=== PATIENT | male | born 1950 | race Caucasian/White ===

== ENCOUNTER 2018-11-15 21:33 | Observation (INO) | payer MEDICARE, BC ==
[2018-11-15] MEDS ORDERED: Sodium Chloride 0.9% 10 ML Syringe FLUSH PRN (21:45)
--- NOTE | 2018-11-15 21:58 | EDM.PDOC ---
ED HPI GENERAL MEDICAL PROBLEM - General Chief Complaint: General Stated Complaint: GENERAL MALAISE Time Seen by Provider: 11/15/18 21:45 Source of Information: Reports: Patient, Family History Limitations: Reports: No Limitations - History of Present Illness INITIAL COMMENTS - FREE TEXT/NARRATIVE: This is a 68yo M here for lower abdominal pain and discomfort. Patient states he has had recent chemotherapy and has been having loose stools the past few days. He feels weak and has malaise. He does note some shortness of breath. Denies chest pain. - Related Data Allergies Allergy/AdvReac Type Severity Reaction Status Date / Time No Known Allergies Allergy Verified 11/15/18 21:48 Home Meds: Home Meds Aspirin [Adult Low Dose Aspirin EC] 81 mg PO BID 01/25/13 [History] Furosemide [Lasix] 20 mg PO DAILY 01/25/13 [History] Losartan Potassium [Cozaar] 50 mg PO DAILY 01/25/13 [History] Metoprolol Tartrate 50 mg PO BID 01/25/13 [History] Simvastatin [Zocor] 40 mg PO BEDTIME 01/25/13 [History] ED ROS GENERAL - Review of Systems Review Of Systems: ROS reveals no pertinent complaints other than HPI. ED EXAM, GENERAL - Physical Exam Exam: See Below Exam Limited By: No Limitations General Appearance: Alert, WD/WN, Moderate Distress Eye Exam: Bilateral Eye: EOMI, PERRL Ears: Normal External Exam Nose: Normal Inspection Throat/Mouth: Normal Inspection Head: Atraumatic, Normocephalic Neck: Normal Inspection, Supple, Non-Tender Respiratory/Chest: No Respiratory Distress, Lungs Clear, Normal Breath Sounds Cardiovascular: Normal Peripheral Pulses, Regular Rate, Rhythm Peripheral Pulses: 2+: Dorsalis Pedis (L), Dorsalis Pedis (R) GI/Abdominal: Soft, Tender, Abnormal Bowel Sounds (hyperactive) Back Exam: Normal Inspection, Full Range of Motion Extremities: Normal Inspection, Normal Range of Motion Neurological: Alert, Oriented, CN II-XII Intact Psychiatric: Normal Affect, Normal Mood Skin Exam: Dry, Intact, Pallor Course - Orders/Labs/Meds Orders: Active Orders 24 hr Category Date Time Status Patient Status [ADT] Routine ADT 11/15/18 22:53 Active Oxygen Therapy [RC] PRN Care 11/15/18 22:53 Active Up With Assistance [RC] ASDIRECTED Care 11/15/18 22:53 Active Vital Signs [RC] Q4H Care 11/15/18 22:53 Active Chest Abdomen Pelvis wo Cont [CT] Stat Exams 11/15/18 22:01 Taken CBC WITH AUTO DIFF [HEME] AM Lab 11/16/18 05:11 Ordered COMPREHENSIVE METABOLIC PN,CMP [CHEM] AM Lab 11/16/18 05:11 Ordered HYDROmorphone [Dilaudid] Med 11/15/18 23:29 Ordered 1 mg IVPUSH Q6H PRN Ketorolac [Toradol] Med 11/15/18 23:29 Ordered 30 mg IVPUSH Q6H PRN Ondansetron [Zofran] Med 11/15/18 22:55 Active 4 mg IVPUSH Q4H PRN Sodium Chloride 0.9% [Normal Saline] 1,000 ml Med 11/15/18 23:00 Active IV ASDIRECTED Sodium Chloride 0.9% [Saline Flush] Med 11/15/18 21:45 Active 10 ml FLUSH ASDIRECTED PRN Peripheral IV Insertion Adult [OM.PC] Routine Oth 11/15/18 21:45 Ordered Code Status [Resuscitation Status] Stat Resus Stat 11/15/18 23:31 Ordered Medication Orders Hydromorphone HCl (Dilaudid) 1 mg IVPUSH Q6H PRN PRN Reason: Pain (severe 7-10) Sodium Chloride (Normal Saline) 1,000 mls @ 125 mls/hr IV ASDIRECTED [facility] Ketorolac Tromethamine (Toradol) 30 mg IVPUSH Q6H PRN PRN Reason: Abdominal Pain Stop: 11/20/18 23:29 Ondansetron HCl (Zofran) 4 mg IVPUSH Q4H PRN PRN Reason: Nausea/Vomiting Sodium Chloride (Saline Flush) 10 ml FLUSH ASDIRECTED PRN PRN Reason: Keep Vein Open Labs: Laboratory Tests 11/15/18 11/15/18 11/15/18 Range/Units 10:15 10:15 10:15 WBC 1.9 L D (4.0-11.0) K/uL RBC 5.33 (4.50-6.50) M/uL Hgb 16.1 (13.0-18.0) g/dL Hct 46.6 (40.0-54.0) % MCV 87 (76-96) fL MCH 30.2 (27.0-32.0) pg MCHC 34.5 (31.0-35.0) g/dL RDW 13.2 (11.0-16.0) % Plt Count 106 L D (150-400) K/uL MPV 9.6 (6.0-10.0) fL Neut % (Auto) 82.6 H (45.0-70.0) % Lymph % (Auto) 12.2 L (20.0-40.0) % [place] % (Auto) 2.6 L (3.0-10.0) % Eos % (Auto) 2.1 (1.0-5.0) % Baso % (Auto) 0.5 (0.0-0.5) % Neut # (Auto) 1.56 L (2.00-7.50) K/uL Lymph # (Auto) 0.23 L (1.50-4.00) K/uL [place] # (Auto) 0.05 L (0.20-0.80) K/uL Eos # (Auto) 0.04 (0.04-0.40) K/uL Baso # (Auto) 0.01 L (0.02-0.10) K/uL D-Dimer, Quantitative (0-400) ng/mL Sodium 136 (136-145) mmol/L Potassium 3.8 (3.5-5.1) mmol/L Chloride 100 (98-107) mmol/L Carbon Dioxide 20.6 L D (21.0-32.0) mmol/L Anion Gap 19.2 H (5.0-15.0) mmol/L BUN 12 D (8-26) mg/dL Creatinine 1.37 H D (0.70-1.30) mg/dL Est Cr Clr Drug Dosing TNP Estimated GFR (MDRD) 51 L (>60) MLS/MIN BUN/Creatinine Ratio 8.8 (6-25) Glucose 174 H (74-100) mg/dL Calcium 8.8 (8.5-10.1) mg/dL Total Bilirubin 3.3 H D (0.0-1.0) mg/dL AST 449 H (15-37) U/L ALT 468 H (12-78) U/L Alkaline Phosphatase 648 H (46-116) U/L Total Protein 6.3 L (6.4-8.2) g/dL Albumin 2.4 L (3.4-5.0) g/dL Globulin 3.9 (2.2-4.2) g/dL Albumin/Globulin Ratio 0.6 L (0.8-2.0) Lipase 30 L D (73-393) U/L Urine Color Yellow Urine Appearance Clear (CLEAR) Urine pH 5.5 (5.0-8.0) Ur Specific [place] 1.010 (1.003-1.030) Urine Protein Trace H (NEGATIVE) mg/dL Urine Glucose (UA) Negative (NEGATIVE) mg/dL Urine Ketones Negative (NEGATIVE) mg/dL Urine Occult Blood Negative (NEGATIVE) Urine Nitrite Negative (NEGATIVE) Urine Bilirubin Small H (NEGATIVE) Urine Urobilinogen 0.2 (0.2-1.0) E.U./dL Ur Leukocyte Esterase Negative (NEGATIVE) Urine RBC Not seen /HPF Urine WBC Not seen /HPF Ur Squamous Epith Cells Moderate /HPF Urine Bacteria Not seen /HPF 11/15/18 Range/Units 10:15 WBC (4.0-11.0) K/uL RBC (4.50-6.50) M/uL Hgb (13.0-18.0) g/dL Hct (40.0-54.0) % MCV (76-96) fL MCH (27.0-32.0) pg MCHC (31.0-35.0) g/dL RDW (11.0-16.0) % Plt Count (150-400) K/uL MPV (6.0-10.0) fL Neut % (Auto) (45.0-70.0) % Lymph % (Auto) (20.0-40.0) % [place] % (Auto) (3.0-10.0) % Eos % (Auto) (1.0-5.0) % Baso % (Auto) (0.0-0.5) % Neut # (Auto) (2.00-7.50) K/uL Lymph # (Auto) (1.50-4.00) K/uL [place] # (Auto) (0.20-0.80) K/uL Eos # (Auto) (0.04-0.40) K/uL Baso # (Auto) (0.02-0.10) K/uL D-Dimer, Quantitative 1800 H (0-400) ng/mL Sodium (136-145) mmol/L Potassium (3.5-5.1) mmol/L Chloride (98-107) mmol/L Carbon Dioxide (21.0-32.0) mmol/L Anion Gap (5.0-15.0) mmol/L BUN (8-26) mg/dL Creatinine (0.70-1.30) mg/dL Est Cr Clr Drug Dosing Estimated GFR (MDRD) (>60) MLS/MIN BUN/Creatinine Ratio (6-25) Glucose (74-100) mg/dL Calcium (8.5-10.1) mg/dL Total Bilirubin (0.0-1.0) mg/dL AST (15-37) U/L ALT (12-78) U/L Alkaline Phosphatase (46-116) U/L Total Protein (6.4-8.2) g/dL Albumin (3.4-5.0) g/dL Globulin (2.2-4.2) g/dL Albumin/Globulin Ratio (0.8-2.0) Lipase (73-393) U/L Urine Color Urine Appearance (CLEAR) Urine pH (5.0-8.0) Ur Specific [place] (1.003-1.030) Urine Protein (NEGATIVE) mg/dL Urine Glucose (UA) (NEGATIVE) mg/dL Urine Ketones (NEGATIVE) mg/dL Urine Occult Blood (NEGATIVE) Urine Nitrite (NEGATIVE) Urine Bilirubin (NEGATIVE) Urine Urobilinogen (0.2-1.0) E.U./dL Ur Leukocyte Esterase (NEGATIVE) Urine RBC /HPF Urine WBC /HPF Ur Squamous Epith Cells /HPF Urine Bacteria /HPF Meds: Medications Generic Name Dose Route Start Last Admin Trade Name Freq PRN Reason Stop Dose Admin Hydromorphone HCl 1 mg 11/15/18 23:29 Dilaudid IVPUSH Q6H PRN Pain (severe 7-10) Sodium Chloride 1,000 mls @ 125 mls/hr 11/15/18 23:00 Normal Saline IV ASDIRECTED [facility] Ketorolac Tromethamine 30 mg 11/15/18 23:29 Toradol IVPUSH 11/20/18 23:29 Q6H PRN Abdominal Pain Ondansetron HCl 4 mg 11/15/18 22:55 Zofran IVPUSH Q4H PRN Nausea/Vomiting Sodium Chloride 10 ml 11/15/18 21:45 Saline Flush FLUSH ASDIRECTED PRN Keep Vein Open Departure - Departure Time of Disposition: 23:30 Disposition: Refer to Observation Condition: Fair Clinical Impression: Chemotherapy induced neutropenia, Pancreatic carcinoma, Renal dysfunction, Abnormal liver enzymes Intractable nausea and vomiting Qualifiers: Vomiting type: unspecified Qualified Code(s): R11.2 - Nausea with vomiting, unspecified Abdominal pain Qualifiers: Abdominal location: lower abdomen, unspecified Qualified Code(s): R10.30 - Lower abdominal pain, unspecified - Discharge Information Forms: ED Department Discharge - Problem List & Annotations (1) Abdominal pain SNOMED Code(s): 99329069 Code(s): R10.9 - UNSPECIFIED ABDOMINAL PAIN Status: Acute Priority: High Current Visit: Yes Qualifiers: Abdominal location: lower abdomen, unspecified Qualified Code(s): R10.30 - Lower abdominal pain, unspecified (2) Abnormal liver enzymes SNOMED Code(s): 548322538 Code(s): R74.8 - ABNORMAL LEVELS OF OTHER SERUM ENZYMES Status: Acute Priority: High Current Visit: Yes (3) Chemotherapy induced neutropenia SNOMED Code(s): 204780401 Code(s): D70.1 - AGRANULOCYTOSIS SECONDARY TO CANCER CHEMOTHERAPY; T45.1X5A - ADVERSE EFFECT OF ANTINEOPLASTIC AND IMMUNOSUP DRUGS, INIT Status: Acute Priority: High Current Visit: Yes (4) Intractable nausea and vomiting SNOMED Code(s): 555818843 Code(s): R11.2 - NAUSEA WITH VOMITING, UNSPECIFIED Status: Acute Priority : High Current Visit: Yes Qualifiers: Vomiting type: unspecified Qualified Code(s): R11.2 - Nausea with vomiting , unspecified (5) Pancreatic carcinoma SNOMED Code(s): 685945989 Code(s): C25.9 - MALIGNANT NEOPLASM OF PANCREAS, UNSPECIFIED Status: Chronic Priority: High Current Visit: Yes (6) Renal dysfunction Status: Acute Priority: High Current Visit: Yes - Problem List Review Problem List Initiated/Reviewed/Updated: Yes - My Orders Last 24 Hours: My Active Orders 11/15/18 21:45 Sodium Chloride 0.9% [Saline Flush] 10 ml FLUSH ASDIRECTED PRN Peripheral IV Insertion Adult [OM.PC] Routine 11/15/18 22:01 Chest Abdomen Pelvis wo Cont [CT] Stat 11/15/18 22:53 Patient Status [ADT] Routine Oxygen Therapy [RC] PRN Up With Assistance [RC] ASDIRECTED Vital Signs [RC] Q4H 11/15/18 22:55 Ondansetron [Zofran] 4 mg IVPUSH Q4H PRN 11/15/18 23:00 Sodium Chloride 0.9% [Normal Saline] 1,000 ml IV ASDIRECTED 11/15/18 23:29 HYDROmorphone [Dilaudid] 1 mg IVPUSH Q6H PRN Ketorolac [Toradol] 30 mg IVPUSH Q6H PRN 11/15/18 23:31 Code Status [Resuscitation Status] Stat 11/16/18 05:11 CBC WITH AUTO DIFF [HEME] AM COMPREHENSIVE METABOLIC PN,CMP [CHEM] AM - Assessment/Plan Last 24 Hours: My Active Orders 11/15/18 21:45 Sodium Chloride 0.9% [Saline Flush] 10 ml FLUSH ASDIRECTED PRN Peripheral IV Insertion Adult [OM.PC] Routine 11/15/18 22:01 Chest Abdomen Pelvis wo Cont [CT] Stat 11/15/18 22:53 Patient Status [ADT] Routine Oxygen Therapy [RC] PRN Up With Assistance [RC] ASDIRECTED Vital Signs [RC] Q4H 11/15/18 22:55 Ondansetron [Zofran] 4 mg IVPUSH Q4H PRN 11/15/18 23:00 Sodium Chloride 0.9% [Normal Saline] 1,000 ml IV ASDIRECTED 11/15/18 23:29 HYDROmorphone [Dilaudid] 1 mg IVPUSH Q6H PRN Ketorolac [Toradol] 30 mg IVPUSH Q6H PRN 11/15/18 23:31 Code Status [Resuscitation Status] Stat 11/16/18 05:11 CBC WITH AUTO DIFF [HEME] AM COMPREHENSIVE METABOLIC PN,CMP [CHEM] AM Plan: Counseled on renal dysfunction, neutropenia, nausea and vomiting, and labs today. Discussed f/u labs in am. Patient to be placed in observation. Zofran as indicated. Toradol for abdominal pain and if symptoms persist or worsen dilaudid has been ordered as PRN. IVF hydration as directed.
[2018-11-15] MEDS ORDERED: Ondansetron 4 MG/2 ML SDV IVPUSH PRN (22:55)
[2018-11-15] MEDS ORDERED: HYDROmorphone 2 MG/ML Syringe IVPUSH PRN (23:29)
[2018-11-15] MEDS ORDERED: Ketorolac 30 MG/ML SDV IVPUSH PRN (23:29)
[2018-11-16] MEDS ORDERED: HYDROmorphone 2 MG/ML SDV ONE (00:03)
[2018-11-16] MEDS: Sodium Chloride 0.9% 1,000 ML IV SCH ×2 (00:09→09:08)
[2018-11-16] MEDS ORDERED: Nitroglycerin 0.4 MG Tab.SL SL PRN (02:58)
[2018-11-16] MEDS ORDERED: Albuterol 8 GM Inhaler INH PRN ×2 (02:58→09:00)
[2018-11-16] MEDS ORDERED: Ibuprofen 200 MG Tab PO PRN (02:58)
[2018-11-16] MEDS ORDERED: Prochlorperazine 10 MG Tab PO PRN (02:58)
[2018-11-16] MEDS ORDERED: Colchicine 0.6 MG Tab PO PRN (02:58)
[2018-11-16] MEDS ORDERED: Indomethacin 50 MG Cap PO PRN (02:58)
[2018-11-16] MEDS ORDERED: Furosemide 20 MG Tab PO SCH (08:00)
[2018-11-16] MEDS ORDERED: [UNRECOGNIZED DRUG - REMARK] PO SCH (08:00)
[2018-11-16] MEDS ORDERED: Losartan 50 MG Tab PO SCH (08:00)
[2018-11-16] MEDS ORDERED: Metoprolol Tartrate 50 MG Tab PO SCH (08:00)
[2018-11-16] MEDS ORDERED: Aspirin 81 MG Tab.EC PO SCH (08:00)
[2018-11-16] MEDS ORDERED: Mometasone Furoate Powder 220 MCG/Puff 14 Dose Inhaler INH SCH (08:00)
[2018-11-16] MEDS ORDERED: Cholecalciferol (Vitamin D3) 25 MCG Tab PO SCH (08:00)
[2018-11-16] MEDS ORDERED: Atropine/Diphenoxylate 0.025-2.5 MG/5 ML Soln 60 ML Bottle PO PRN (08:00)
[2018-11-16] MEDS ORDERED: HYDROmorphone 2 MG/ML SDV IV PRN (08:28)
[2018-11-16] MEDS ORDERED: HYDROmorphone 2 MG/ML SDV IVPUSH PRN (08:29)
--- NOTE | 2018-11-16 09:27 | PCM.DCSUM1 ---
Discharge Summary - Discharge Data Discharge Date: 11/16/18 Discharge Disposition: Home, Self-Care 01 Condition: Fair - Referral to Home Health Primary Care Physician: Donald Elder MD - Discharge Diagnosis/Problem(s) (1) Abdominal pain SNOMED Code(s): 43719741 ICD Code: R10.9 - UNSPECIFIED ABDOMINAL PAIN Status: Resolved Priority: High Current Visit: Yes Qualifiers: Abdominal location: lower abdomen, unspecified Qualified Code(s): R10.30 - Lower abdominal pain, unspecified (2) Abnormal liver enzymes SNOMED Code(s): 393597610 ICD Code: R74.8 - ABNORMAL LEVELS OF OTHER SERUM ENZYMES Status: Acute Priority: High Current Visit: Yes (3) Chemotherapy induced neutropenia SNOMED Code(s): 746644675 ICD Code: D70.1 - AGRANULOCYTOSIS SECONDARY TO CANCER CHEMOTHERAPY; T45.1X5A - ADVERSE EFFECT OF ANTINEOPLASTIC AND IMMUNOSUP DRUGS, INIT Status: Resolved Priority: High Current Visit: Yes (4) Intractable nausea and vomiting SNOMED Code(s): 097206219 ICD Code: R11.2 - NAUSEA WITH VOMITING, UNSPECIFIED Status: Resolved Priority: High Current Visit: Yes Qualifiers: Vomiting type: unspecified Qualified Code(s): R11.2 - Nausea with vomiting , unspecified (5) Pancreatic carcinoma SNOMED Code(s): 677864117 ICD Code: C25.9 - MALIGNANT NEOPLASM OF PANCREAS, UNSPECIFIED Status: Chronic Priority: High Current Visit: Yes (6) Renal dysfunction Status: Suspected Priority: High Current Visit: Yes - Patient Instructions Diet: Full Liquid Diet Activity: As Tolerated - Discharge Plan Home Medications: Home Meds Aspirin [Adult Low Dose Aspirin EC] 81 mg PO BID 01/25/13 [History] Furosemide [Lasix] 20 mg PO DAILY 01/25/13 [History] Losartan Potassium [Cozaar] 50 mg PO DAILY 01/25/13 [History] Metoprolol Tartrate 50 mg PO BID 01/25/13 [History] Simvastatin [Zocor] 40 mg PO BEDTIME 01/25/13 [History] Albuterol [Ventolin HFA] 2 puff IH Q4HR PRN 11/16/18 [History] Cetirizine HCl [All Day Allergy] 10 mg PO DAILY 11/16/18 [History] Cholecalciferol (Vitamin D3) [Vitamin D3] 25 mcg PO DAILY 11/16/18 [History] Colchicine [Colcrys] 0.6 mg PO ASDIRECTED PRN 11/16/18 [History] Diphenoxylate HCl/Atropine [Diphenoxylate-Atrop 2.5-0.025] 1 each PO QID PRN [History] Ibuprofen [Advil] 400 mg PO Q6H PRN 11/16/18 [History] Indomethacin 50 mg PO TID PRN 11/16/18 [History] Mometasone Furoate [Asmanex] 2 puff IH DAILY 11/16/18 [History] Nitroglycerin [Nitrostat] 0.4 mg SL ASDIRECTED PRN 11/16/18 [History] Prochlorperazine [Compazine] 10 mg PO Q6H PRN 11/16/18 [History] Forms: ED Department Discharge Referrals: Donald Elder MD [Primary Care Provider] - - Discharge Summary/Plan Comment DC Time >30 min.: No Discharge Summary/Plan Comment: Counseled on liquid diet due to likely obstruction. Discussed hydration and fluid resuscitation. Counseled on close monitoring and f/u in clinic as scheduled. Patient to f/u with Oncology on Monday. Symptoms of nausea and abd pain resolved. - General Info Date of Service: 11/16/18 Functional Status: Reports: Tolerating Diet, Ambulating, Urinating - Review of Systems General: Reports: Weakness HEENT: Reports: No Symptoms Pulmonary: Reports: No Symptoms Cardiovascular: Reports: No Symptoms Gastrointestinal: Reports: Decreased Appetite Genitourinary: Reports: No Symptoms Musculoskeletal: Reports: No Symptoms Skin: Reports: No Symptoms Neurological: Reports: No Symptoms Psychiatric: Reports: No Symptoms - Patient Data Vitals - Most Recent: Last Vital Signs Temp 36.9 C 11/16/18 03:30 Pulse 117 H 11/16/18 09:17 Resp 18 11/16/18 03:30 BP 101/67 11/16/18 09:17 Pulse Ox 97 11/16/18 03:30 Weight - Most Recent: 100.335 kg I&O - Last 24 hours: Intake & Output 11/15/18 11/16/18 11/16/18 22:59 06:59 14:59 Intake Total 1244 Output Total 0 Balance 1244 Lab Results - Last 24 hrs: Laboratory Results - last 24 hr 11/15/18 11/15/18 11/15/18 Range/Units 10:15 10:15 10:15 WBC 1.9 L D (4.0-11.0) K/uL RBC 5.33 (4.50-6.50) M/uL Hgb 16.1 (13.0-18.0) g/dL Hct 46.6 (40.0-54.0) % MCV 87 (76-96) fL MCH 30.2 (27.0-32.0) pg MCHC 34.5 (31.0-35.0) g/dL RDW 13.2 (11.0-16.0) % Plt Count 106 L D (150-400) K/uL MPV 9.6 (6.0-10.0) fL Neut % (Auto) 82.6 H (45.0-70.0) % Lymph % (Auto) 12.2 L (20.0-40.0) % [place] % (Auto) 2.6 L (3.0-10.0) % Eos % (Auto) 2.1 (1.0-5.0) % Baso % (Auto) 0.5 (0.0-0.5) % Neut # (Auto) 1.56 L (2.00-7.50) K/uL Lymph # (Auto) 0.23 L (1.50-4.00) K/uL [place] # (Auto) 0.05 L (0.20-0.80) K/uL Eos # (Auto) 0.04 (0.04-0.40) K/uL Baso # (Auto) 0.01 L (0.02-0.10) K/uL D-Dimer, Quantitative (0-400) ng/mL Sodium 136 (136-145) mmol/L Potassium 3.8 (3.5-5.1) mmol/L Chloride 100 (98-107) mmol/L Carbon Dioxide 20.6 L D (21.0-32.0) mmol/L Anion Gap 19.2 H (5.0-15.0) mmol/L BUN 12 D (8-26) mg/dL Creatinine 1.37 H D (0.70-1.30) mg/dL Est Cr Clr Drug Dosing TNP Estimated GFR (MDRD) 51 L (>60) MLS/MIN BUN/Creatinine Ratio 8.8 (6-25) Glucose 174 H (74-100) mg/dL Calcium 8.8 (8.5-10.1) mg/dL Total Bilirubin 3.3 H D (0.0-1.0) mg/dL AST 449 H (15-37) U/L ALT 468 H (12-78) U/L Alkaline Phosphatase 648 H (46-116) U/L Total Protein 6.3 L (6.4-8.2) g/dL Albumin 2.4 L (3.4-5.0) g/dL Globulin 3.9 (2.2-4.2) g/dL Albumin/Globulin Ratio 0.6 L (0.8-2.0) Lipase 30 L D (73-393) U/L Urine Color Yellow Urine Appearance Clear (CLEAR) Urine pH 5.5 (5.0-8.0) Ur Specific [place] 1.010 (1.003-1.030) Urine Protein Trace H (NEGATIVE) mg/dL Urine Glucose (UA) Negative (NEGATIVE) mg/dL Urine Ketones Negative (NEGATIVE) mg/dL Urine Occult Blood Negative (NEGATIVE) Urine Nitrite Negative (NEGATIVE) Urine Bilirubin Small H (NEGATIVE) Urine Urobilinogen 0.2 (0.2-1.0) E.U./dL Ur Leukocyte Esterase Negative (NEGATIVE) Urine RBC Not seen /HPF Urine WBC Not seen /HPF Ur Squamous Epith Cells Moderate /HPF Urine Bacteria Not seen /HPF 11/15/18 11/16/18 11/16/18 Range/Units 10:15 07:20 07:20 WBC 6.5 D (4.0-11.0) K/uL RBC 4.96 (4.50-6.50) M/uL Hgb 14.9 (13.0-18.0) g/dL Hct 43.6 (40.0-54.0) % MCV 88 (76-96) fL MCH 30.0 (27.0-32.0) pg MCHC 34.2 (31.0-35.0) g/dL RDW 13.3 (11.0-16.0) % Plt Count 80 L D (150-400) K/uL MPV 10.3 H (6.0-10.0) fL Neut % (Auto) 85.6 H (45.0-70.0) % Lymph % (Auto) 5.8 L (20.0-40.0) % [place] % (Auto) 8.0 (3.0-10.0) % Eos % (Auto) 0.3 L (1.0-5.0) % Baso % (Auto) 0.3 (0.0-0.5) % Neut # (Auto) 5.59 (2.00-7.50) K/uL Lymph # (Auto) 0.38 L (1.50-4.00) K/uL [place] # (Auto) 0.52 (0.20-0.80) K/uL Eos # (Auto) 0.02 L (0.04-0.40) K/uL Baso # (Auto) 0.02 (0.02-0.10) K/uL D-Dimer, Quantitative 1800 H (0-400) ng/mL Sodium 137 (136-145) mmol/L Potassium 3.4 L (3.5-5.1) mmol/L Chloride 101 (98-107) mmol/L Carbon Dioxide 20.9 L (21.0-32.0) mmol/L Anion Gap 18.5 H (5.0-15.0) mmol/L BUN 15 D (8-26) mg/dL Creatinine 2.32 H D (0.70-1.30) mg/dL Est Cr Clr Drug Dosing 27.70 Estimated GFR (MDRD) 28 L (>60) MLS/MIN BUN/Creatinine Ratio 6.5 (6-25) Glucose 114 H D (74-100) mg/dL Calcium 8.3 L (8.5-10.1) mg/dL Total Bilirubin 4.2 H (0.0-1.0) mg/dL AST 345 H (15-37) U/L ALT 441 H (12-78) U/L Alkaline Phosphatase 678 H (46-116) U/L Total Protein 4.8 L (6.4-8.2) g/dL Albumin 2.2 L (3.4-5.0) g/dL Globulin 2.6 (2.2-4.2) g/dL Albumin/Globulin Ratio 0.9 (0.8-2.0) Lipase (73-393) U/L Urine Color Urine Appearance (CLEAR) Urine pH (5.0-8.0) Ur Specific [place] (1.003-1.030) Urine Protein (NEGATIVE) mg/dL Urine Glucose (UA) (NEGATIVE) mg/dL Urine Ketones (NEGATIVE) mg/dL Urine Occult Blood (NEGATIVE) Urine Nitrite (NEGATIVE) Urine Bilirubin (NEGATIVE) Urine Urobilinogen (0.2-1.0) E.U./dL Ur Leukocyte Esterase (NEGATIVE) Urine RBC /HPF Urine WBC /HPF Ur Squamous Epith Cells /HPF Urine Bacteria /HPF Med Orders - Current: Current Medications Albuterol (Ventolin Hfa) 0 gm INH Q4H PRN PRN Reason: Shortness of Breath Aspirin (Halfprin) 81 mg PO BID [facility] Last Admin: 11/16/18 09:16 Dose: 81 mg Cholecalciferol (Vitamin D3) 25 mcg PO DAILY [facility] Last Admin: 11/16/18 09:18 Dose: 25 mcg Colchicine (Colcrys) 0.6 mg PO ASDIRECTED PRN PRN Reason: Inflammation Diphenoxylate HCl/Atropine (Lomotil) 5 ml PO QID PRN PRN Reason: Diarrhea Furosemide (Lasix) 20 mg PO DAILY [facility] Last Admin: 11/16/18 09:17 Dose: Not Given Hydromorphone HCl (Dilaudid) 1 mg IVPUSH Q6H PRN PRN Reason: SEVERA PAIN Sodium Chloride (Normal Saline) 1,000 mls @ 125 mls/hr IV ASDIRECTED [facility] Last Admin: 11/16/18 09:08 Dose: 125 mls/hr Ibuprofen (Motrin) 400 mg PO Q6H PRN PRN Reason: Pain Indomethacin (Indocin) 50 mg PO TID PRN PRN Reason: Inflammation Ketorolac Tromethamine (Toradol) 30 mg IVPUSH Q6H PRN PRN Reason: Abdominal Pain Stop: 11/20/18 23:29 Last Admin: 11/15/18 22:33 Dose: 30 mg Losartan Potassium (Cozaar) 50 mg PO DAILY [facility] Last Admin: 11/16/18 09:11 Dose: 50 mg Metoprolol Tartrate (Lopressor) 50 mg PO BID [facility] Last Admin: 11/16/18 09:17 Dose: 50 mg Mometasone Furoate (Asmanex 220 Mcg) 2 puff INH DAILY [facility] Last Admin: 11/16/18 09:09 Dose: 2 inh Nitroglycerin (Nitrostat) 0.4 mg SL ASDIRECTED PRN PRN Reason: Chest Pain Non-Formulary Medication (Cetirizine Hcl [All Day Allergy]) 10 mg PO DAILY [facility] Last Admin: 11/16/18 09:10 Dose: 10 mg Ondansetron HCl (Zofran) 4 mg IVPUSH Q4H PRN PRN Reason: Nausea/Vomiting Last Admin: 11/15/18 22:30 Dose: 4 mg Prochlorperazine Maleate (Compazine) 10 mg PO Q6H PRN PRN Reason: Nausea Simvastatin (Zocor) 40 mg PO BEDTIME [facility] Sodium Chloride (Saline Flush) 10 ml FLUSH ASDIRECTED PRN PRN Reason: Keep Vein Open Discontinued Medications Albuterol (Ventolin Hfa) 0 gm INH Q4HR PRN PRN Reason: Shortness of Breath Hydromorphone HCl (Dilaudid) 1 mg IVPUSH Q6H PRN PRN Reason: Pain (severe 7-10) Last Admin: 11/16/18 00:12 Dose: 0.5 mg Hydromorphone HCl (Dilaudid) Confirm Administered Dose 2 mg .ROUTE .STK-MED ONE Stop: 11/16/18 00:04 Last Admin: 11/16/18 00:17 Dose: Not Given Hydromorphone HCl (Dilaudid) 2 mg IV Q6H PRN PRN Reason: SEVERA PAIN - Exam General: Reports: Alert, Oriented, Cooperative HEENT: Reports: Pupils Equal, Pupils Reactive, EOMI Neck: Reports: Supple Lungs: Reports: Clear to Auscultation, Normal Respiratory Effort Cardiovascular: Reports: Regular Rate, Regular Rhythm GI/Abdominal Exam: Normal Bowel Sounds, Soft, Non-Tender Back Exam: Reports: Normal Inspection Extremities: Normal Inspection Skin: Reports: Warm, Dry, Intact
--- NOTE | 2018-11-16 17:08 | CT ---
CLINICAL DATA: Shortness of breath, abdominal pain, hx Panc ca. UNENHANCED CHEST CT, 2018: Multislice acquisition through the chest without IV contrast was performed. No priors. There are mild atelectatic changes in the dependent portions of both lungs. The lungs are otherwise clear. No pneumothorax. No pleural effusions. The heart size is normal. There are mild coronary artery calcifications. No significant pericardial effusion. No hilar or mediastinal adenopathy. The patient is status post median sternotomy. No aortic aneurysm. IMPRESSION: No acute abnormalities. UNENHANCED ABDOMEN AND PELVIC CT: Multislice acquisition through the abdomen and pelvis without IV or oral contrast was performed. No priors. There are minimal atelectatic changes of the dependent portions of both lower lungs. The lung bases are otherwise clear. The liver is normal size. There is pneumobilia. There is a common bile duct stent in place. There is contrast present within the gallbladder and within the cystic duct. There is minimal pericholecystic fat stranding. There is also a stent noted within the pancreatic duct. There is a 4.6 cm mass within the pancreatic head. The body and tail of the pancreas are unremarkable. No pancreatic duct dilatation. Spleen appears normal. The right and left adrenals appear normal. There is mild atrophy of both kidneys. There is a 2.2 cm near-fluid density lesion projecting from the interpolar region of the left kidney posteriorly, consistent with a renal cyst. No hydronephrosis or hydroureter. No nephrocalcinosis or nephrolithiasis. There is a small amount of fluid within the bladder. It appears normal. The appendix is not dilated. No evidence of appendicitis. No free air. No free fluid. No dilated loops of bowel. No adenopathy. No aortic aneurysm. There is a small paraumbilical ventral hernia containing fat. There is a left inguinal hernia containing fat. No other significant findings. Job: [id number] MTDD
[2018-11-16] MEDS ORDERED: Simvastatin 40 MG Tab PO SCH (20:00)
== END 2018-11-16 18:08 | disposition home or self-care (01) ==
LOC: LB.ED 21:33 → LB.MS 23:54
PROVIDERS: ADMIT Family Medicine; ATTEND Family Medicine
DX: R10.30 Lower abdominal pain, unspecified (principal); R74.8 Abnormal levels of other serum enzymes; D70.1 Agranulocytosis secondary to cancer chemotherapy; R11.2 Nausea with vomiting, unspecified; C25.9 Malignant neoplasm of pancreas, unspecified; N28.9 Disorder of kidney and ureter, unspecified; Z79.82 Long term (current) use of aspirin; Z79.899 Other long term (current) drug therapy
CPT/HCPCS: 36415; 71250; 74176; 80053; 81001; 83690; 85025; 85379; 99285; A9270; J1170; J1642; J1885; J2405; J7030

== ENCOUNTER 2018-12-05 06:11 | Observation (INO) | payer MEDICARE, BC ==
[2018-12-05] MEDS ORDERED: Sodium Chloride 0.9% 1,000 ML IV ONE ×2 (06:43→10:42)
--- NOTE | 2018-12-05 08:49 | CR ---
Date of Service: 12/05/18 Clinical Data: cough - weakness. AP PORTABLE CHEST: Comparison is made to a prior exam dated 01/28/13. The patient is status post median sternotomy. The heart size is normal. There is a right subclavian Port-a-Cath in place with its distal tip in the region of the right atrium. There are minimal atelectatic changes in the left lung base. The lungs are otherwise clear. No pneumothorax. No pleural effusions. [id number] [facility]
[2018-12-05] MEDS ORDERED: MVI, Adult with Vitamin K 10 ML, Thiamine 200 MG in Dextrose 5%-Lactated Ringers 1,000 ML IV SCH ×3 (09:15)
[2018-12-05] MEDS ORDERED: Furosemide 40 MG/4 ML VIAL ONE (10:05)
[2018-12-05] MEDS ORDERED: Furosemide 40 MG/4 ML VIAL IVPUSH ONE (10:07)
[2018-12-05] MEDS ORDERED: LORazepam 2 MG/ML SDV ONE (10:10)
[2018-12-05] MEDS ORDERED: LORazepam 2 MG/ML SDV IVPUSH PRN (10:14)
[2018-12-05] MEDS ORDERED: Piperacillin/Tazobactam 4.5 GM in Sodium Chloride 0.9% 100 ML IV SCH (11:15)
--- NOTE | 2018-12-05 11:46 | CR ---
DATE OF SERVICE: 12/05/2018 CLINICAL DATA: Shortness of breath AP portable chest: Comparison is made to prior exam from earlier in the day. The patient has taken a poor inspiration. The heart size is stable. The right subclavian Port-A-Cath is unchanged in position. The pulmonary vasculature does appear more prominent than the earlier exam. It is probably accentuated by the poor inspiration. The possibility of fluid overload or mild pulmonary venous congestion should be considered. The lungs are clear. No pneumothorax. No pleural effusions. MTDD
--- NOTE | 2018-12-05 11:58 | EDM.PDOC ---
ED HPI GENERAL MEDICAL PROBLEM - General Chief Complaint: General Stated Complaint: WEAKNESS, DEHYDRATION Time Seen by Provider: 12/05/18 07:45 Source of Information: Reports: Patient, Family History Limitations: Reports: No Limitations - History of Present Illness INITIAL COMMENTS - FREE TEXT/NARRATIVE: This is a 68yo M who was seen initially by [facility] for dehydration due to diarrhea for the past 3 days. Patient was given 1 L bolus and labs were ordered for after the bolus per [facility]. Patient seen in the ER and pending labs. Duration: Day(s): Severity: Severe Improves with: Reports: None, Medication (loperamide) Worsens with: Reports: None Associated Symptoms: Reports: Malaise, Weakness Abdominal Pain Score (Numeric/FACES): 3 Lower Back Pain Score (Numeric/FACES): 6 - Related Data Allergies Allergy/AdvReac Type Severity Reaction Status Date / Time No Known Allergies Allergy Verified 11/15/18 21:48 Home Meds: Home Meds Aspirin [Adult Low Dose Aspirin EC] 81 mg PO BID 01/25/13 [History] Furosemide [Lasix] 20 mg PO DAILY 01/25/13 [History] Losartan Potassium [Cozaar] 50 mg PO DAILY 01/25/13 [History] Metoprolol Tartrate 50 mg PO BID 01/25/13 [History] Simvastatin [Zocor] 40 mg PO BEDTIME 01/25/13 [History] Albuterol [Ventolin HFA] 2 puff IH Q4HR PRN 11/16/18 [History] Cetirizine HCl [All Day Allergy] 10 mg PO DAILY 11/16/18 [History] Cholecalciferol (Vitamin D3) [Vitamin D3] 25 mcg PO DAILY 11/16/18 [History] Colchicine [Colcrys] 0.6 mg PO ASDIRECTED PRN 11/16/18 [History] Diphenoxylate HCl/Atropine [Diphenoxylate-Atrop 2.5-0.025] 1 each PO QID PRN [History] Ibuprofen [Advil] 400 mg PO Q6H PRN 11/16/18 [History] Indomethacin 50 mg PO TID PRN 11/16/18 [History] Mometasone Furoate [Asmanex] 2 puff IH DAILY 11/16/18 [History] Nitroglycerin [Nitrostat] 0.4 mg SL ASDIRECTED PRN 11/16/18 [History] Prochlorperazine [Compazine] 10 mg PO Q6H PRN 11/16/18 [History] Past Medical History HEENT History: Reports: Hard of Hearing, Impaired Vision Cardiovascular History: Reports: High Cholesterol, Hypertension Respiratory History: Reports: Asthma Gastrointestinal History: Reports: Gastritis, GERD Musculoskeletal History: Reports: Back Pain, Chronic, Osteoarthritis Oncologic (Cancer) History: Reports: Pancreatic - Past Surgical History HEENT Surgical History: Reports: Cataract Surgery Cardiovascular Surgical History: Reports: Coronary Artery Bypass Social & Family History - Family History Family Medical History: Noncontributory - Tobacco Use Smoking Status *Q: Former Smoker Used Tobacco, but Quit: Yes Month/Year Tobacco Last Used: 2004 - Caffeine Use Caffeine Use: Reports: Coffee - Recreational Drug Use Recreational Drug Use: No ED ROS GENERAL - Review of Systems Review Of Systems: ROS reveals no pertinent complaints other than HPI. ED EXAM, GENERAL - Physical Exam Exam: See Below Exam Limited By: No Limitations General Appearance: Alert, WD/WN, No Apparent Distress Eye Exam: Bilateral Eye: EOMI, PERRL Ears: Normal External Exam Nose: Normal Inspection Throat/Mouth: Normal Inspection Head: Atraumatic, Normocephalic Neck: Normal Inspection Respiratory/Chest: No Respiratory Distress, Lungs Clear, Normal Breath Sounds, No Accessory Muscle Use, Chest Non-Tender Cardiovascular: Normal Peripheral Pulses, Regular Rate, Rhythm Peripheral Pulses: 2+: Dorsalis Pedis (L), Dorsalis Pedis (R) GI/Abdominal: Normal Bowel Sounds Back Exam: Normal Inspection Extremities: Normal Inspection Neurological: Alert, CN II-XII Intact, Confused Psychiatric: Normal Affect, Normal Mood Skin Exam: Warm, Dry, Intact Course - Vital Signs Last Recorded V/S: Last Vital Signs Temp 36.7 C 12/05/18 09:54 Pulse 161 H 12/05/18 09:54 Resp 32 H 12/05/18 09:54 BP 151/99 H 12/05/18 09:54 Pulse Ox 99 12/05/18 09:54 - Orders/Labs/Meds Orders: Active Orders 24 hr Category Date Time Status EKG Documentation Completion [RC] ASDIRECTED Care 12/05/18 07:34 Active Medication Orders Multivitamins/Minerals 10 ml/Thiamine HCl 200 mg/ Dextrose/Lactated Ringer's 1, 012 mls @ 100 mls/hr IV ASDIRECTED HUMBERTO Stop: 12/06/18 19:23 Lorazepam (Ativan) 0.5 mg IVPUSH Q4H PRN PRN Reason: Anxiety Meds: Medications Generic Name Dose Route Start Last Admin Trade Name Freq PRN Reason Stop Dose Admin Multivitamins/Minerals 10 ml/ 1,012 mls @ 100 mls/hr 12/05/18 09:15 Thiamine HCl 200 mg/ Dextrose/ IV 12/06/18 19:23 Lactated Ringer's ASDIRECTED HUMBERTO Lorazepam 0.5 mg 12/05/18 10:14 Ativan IVPUSH Q4H PRN Anxiety Discontinued Medications Generic Name Dose Route Start Last Admin Trade Name Freq PRN Reason Stop Dose Admin Furosemide Confirm 12/05/18 10:05 12/05/18 10:11 Lasix Administered 12/05/18 10:06 Not Given Dose 40 mg .ROUTE .STK-MED ONE Furosemide 40 mg 12/05/18 10:07 Lasix IVPUSH 12/05/18 10:08 NOW ONE Sodium Chloride 1,000 mls @ 1,000 mls/hr 12/05/18 06:43 12/05/18 06:56 Normal Saline IV 12/05/18 07:42 1,000 mls/hr .BOLUS ONE Administration Piperacillin Sod/Tazobactam 100 mls @ 200 mls/hr 12/05/18 11:15 Sod 4.5 gm/ Sodium Chloride IV 12/05/18 11:44 Q6H HUMBERTO Lorazepam Confirm 12/05/18 10:10 Ativan Administered 12/05/18 10:11 Dose 2 mg .ROUTE .STK-MED ONE - Re-Assessments/Exams Free Text/Narrative Re-Assessment/Exam: Patient turned cyanotic and had difficulty with breathing. Heart rate elevated to 140-150's. Patient exam had crackles of the bases and CXR done showing possible pulmonary vascular congestion. IV 40mg lasix given with improvement of his breathing and congestion. BP dropped due to this. Patient given a small 250mL fluid challenge with no improvement and pressors started. Departure - Departure Time of Disposition: 12:30 Disposition: DC/Tfer to [facility] 02 Condition: Critical Clinical Impression: Severe neutropenia, Pancreatic adenocarcinoma Sepsis Qualifiers: Sepsis type: sepsis due to unspecified organism Sepsis acute organ dysfunction status: unspecified Qualified Code(s): A41.9 - Sepsis, unspecified organism - Discharge Information - Problem List & Annotations (1) Pancreatic adenocarcinoma SNOMED Code(s): 972910794, 758991356 Code(s): C25.9 - MALIGNANT NEOPLASM OF PANCREAS, UNSPECIFIED Status: Acute Priority: High Current Visit: Yes (2) Sepsis SNOMED Code(s): 05768405 Code(s): A41.9 - SEPSIS, UNSPECIFIED ORGANISM Status: Acute Priority: High Current Visit: Yes Qualifiers: Sepsis type: sepsis due to unspecified organism Sepsis acute organ dysfunction status: unspecified Qualified Code(s): A41.9 - Sepsis, unspecified organism (3) Severe neutropenia SNOMED Code(s): 582532344 Code(s): D70.9 - NEUTROPENIA, UNSPECIFIED Status: Acute Priority: High Current Visit: Yes - Problem List Review Problem List Initiated/Reviewed/Updated: Yes - Assessment/Plan Plan: Patient unable to go to [facility] due to acuity of patient. [facility] does not currently have continuity of care of patient and patient has been to [facility] recently for his Chemotherapy and Pancreatic adenocarcinoma management. [place] [facility] [place]. [facility] flight contacted. Patient transferred withe pressors, oxygen saturation 96% on 5L NC. Patient stable at this time. He is DNR/DNI.
[2018-12-05] MEDS: traMADol 50 MG Tab ONE ×2 (12:46→12:51)
[2018-12-05] MEDS ORDERED: LORazepam 2 MG/ML SDV IVPUSH ONE (12:52)
[2018-12-05] MEDS ORDERED: traMADol 50 MG Tab PO ONE (12:53)
[2018-12-05] MEDS ORDERED: Norepinephrine 4 MG in Dextrose 5% in Water 246 ML IV SCH ×2 (13:00)
--- NOTE | 2018-12-05 13:46 | ER ---
HISTORY OF PRESENT ILLNESS: A 68-year-old male here with his . They came in by ambulance with complaints of weakness, being thirsty, and being very shaky. This started about 2 days ago, but it got worse overnight. He was unable to do basic ADLs during the night such as go to the bathroom when he felt he needed to. He has had problems with diarrhea for the last few weeks. The patient has a fairly recent diagnosis of pancreatic cancer diagnosed in September. He has had chemo x2, and his tells me that he has had these symptoms before and was dehydrated before. She feels he is becoming dehydrated again. The patient denies any pain other than chronic back pain. He is very thirsty and keeps asking for ice chips. He admits to coughing, but the cough is dry. No problems with chest pain, shortness of breath, wheezing, or vomiting. OBJECTIVE: GENERAL APPEARANCE: The patient is awake. He is a poor historian. His is giving most of the details today. No obvious respiratory distress. VITAL SIGNS: Reviewed. Blood pressure initially 115/73, pulse 149, temp 98.8, respirations 20, O2 sats 95% on room air. LUNGS: Clear to auscultation. CARDIAC: Heart sounds distinct without any obvious murmur. SKIN: Warm and dry. ABDOMEN: Soft, protuberant, nontender to palpation. HEENT: Oral mucous membranes are dry. EXTREMITIES: There is no swelling or bruising of his legs and ankles. SKIN: Intact without any discoloration. INITIAL TREATMENT PLAN: An IV was started. We will bolus 1 L of fluids in. LABORATORY DATA: Labs include CBC and CMP, and we will get a chest x-ray. Test results are currently pending. The patient's blood pressure was rechecked with a reading of 108/64. INITIAL DIAGNOSIS: Dehydration and weakness. TREATMENT PLAN: My shift is ending. I therefore consulted with Dr. Elder who took over this patient's care. At the end of my shift, the patient's blood pressure was 108/64, pulse was now down into the upper 130s. CRS/MODL /[id number]
== END 2018-12-05 12:39 ==
LOC: LB.ED 06:11 → LB.MS 08:30
PROVIDERS: ADMIT Family Medicine; ATTEND Family Medicine
DX: A41.9 Sepsis, unspecified organism (principal); C25.9 Malignant neoplasm of pancreas, unspecified; D70.9 Neutropenia, unspecified; E86.0 Dehydration; I10 Essential (primary) hypertension; E78.00 Pure hypercholesterolemia, unspecified; J45.909 Unspecified asthma, uncomplicated; Z66 Do not resuscitate; Z95.1 Presence of aortocoronary bypass graft; Z87.891 Personal history of nicotine dependence; Z79.82 Long term (current) use of aspirin; Z79.899 Other long term (current) drug therapy
CPT/HCPCS: 36415; 71045; 80053; 83605; 85025; 87040; 93005; 96365; 96375; A0425; A0429; A9270-GY; G0378; J1940; J2060; J2543; J7030; J7060

== ENCOUNTER → 2019-01-11 | Outpatient (CLI) | payer MEDICARE, BC ==
[2019-01-11] MEDS: FILGRASTIM 480 MCG/1.6 ML SUBCUT SCH ×2 (14:50→15:29)
== END ==
LOC: LB.ACU 14:35
PROVIDERS: ATTEND Nurse Practitioner
DX: C25.9 Malignant neoplasm of pancreas, unspecified (principal)
CPT/HCPCS: 96372; J1442

== ENCOUNTER → 2019-01-15 | Outpatient (CLI) | payer MEDICARE, BC | LOC: LB.CLINIC 11:53 | PROVIDERS: ATTEND Family Medicine | DX: E87.6 Hypokalemia (principal); D72.829 Elevated white blood cell count, unspecified | CPT/HCPCS: 36415; 80048; 85025 ==

== ENCOUNTER 2019-09-10 02:37 | Emergency (ER) | payer MEDICARE, BC ==
[2019-09-10] MEDS ORDERED: Albuterol/Ipratropium 3.0-0.5 MG/3 ML Neb Soln NEB STA (02:45)
[2019-09-10] MEDS ORDERED: methylPREDNISolone Sodium Succinate 125 MG/2 ML SDV IV STA (03:14)
[2019-09-10] MEDS ORDERED: Ondansetron 4 MG/2 ML SDV IVPUSH ONE (03:14)
--- NOTE | 2019-09-10 03:29 | EDM.PDOC ---
ED HPI GENERAL MEDICAL PROBLEM - General Chief Complaint: Gastrointestinal Problem Stated Complaint: weak with nausea Time Seen by Provider: 09/10/19 03:10 Source of Information: Reports: Patient History Limitations: Reports: No Limitations - History of Present Illness INITIAL COMMENTS - FREE TEXT/NARRATIVE: Patient is a69 y/o male with PMHx significant for pancreatic cancer and asthma, who presents with nausea and shortness of breath. He had an asthma exacerbation at home prior to arrival and took his inhaler with some improvement. Patient now has nausea. He has a port on the right chest that he uses for chemo and radiation (last dose in June that he receives in [place], [place]). Patient denies any fever, vomiting, MEDINA, dizziness, chest pain, abdominal pain, diarrhea, cons tipation, back pain, or numbness/tingling. - Related Data Allergies Allergy/AdvReac Type Severity Reaction Status Date / Time No Known Allergies Allergy Verified 09/10/19 07:58 Home Meds: Home Meds Aspirin [Adult Low Dose Aspirin EC] 81 mg PO BID 01/25/13 [History] Furosemide [Lasix] 20 mg PO DAILY 01/25/13 [History] Losartan Potassium [Cozaar] 50 mg PO DAILY 01/25/13 [History] Metoprolol Tartrate 50 mg PO BID 01/25/13 [History] Albuterol [Ventolin HFA] 2 puff IH Q4HR PRN 11/16/18 [History] Cetirizine HCl [All Day Allergy] 10 mg PO DAILY 11/16/18 [History] Cholecalciferol (Vitamin D3) [Vitamin D3] 25 mcg PO DAILY 11/16/18 [History] Colchicine [Colcrys] 0.6 mg PO ASDIRECTED PRN 11/16/18 [History] Diphenoxylate HCl/Atropine [Diphenoxylate-Atrop 2.5-0.025] 1 each PO QID PRN 11/16/18 [History] Ibuprofen [Advil] 400 mg PO Q6H PRN 11/16/18 [History] Indomethacin 50 mg PO TID PRN 11/16/18 [History] Mometasone Furoate [Asmanex] 2 puff IH DAILY 11/16/18 [History] Nitroglycerin [Nitrostat] 0.4 mg SL ASDIRECTED PRN 11/16/18 [History] Prochlorperazine [Compazine] 10 mg PO Q6H PRN 11/16/18 [History] Loperamide [Imodium AD] 2 mg PO ASDIRECTED PRN 09/10/19 [History] Past Medical History HEENT History: Reports: Hard of Hearing, Impaired Vision Cardiovascular History: Reports: High Cholesterol, Hypertension Respiratory History: Reports: Asthma Gastrointestinal History: Reports: Gastritis, GERD Musculoskeletal History: Reports: Back Pain, Chronic, Osteoarthritis Oncologic (Cancer) History: Reports: Pancreatic - Past Surgical History HEENT Surgical History: Reports: Cataract Surgery Cardiovascular Surgical History: Reports: Coronary Artery Bypass Social & Family History - Family History Family Medical History: Noncontributory - Caffeine Use Caffeine Use: Reports: Coffee ED ROS GENERAL - Review of Systems Review Of Systems: Comprehensive ROS is negative, except as noted in HPI. ED EXAM, GENERAL - Physical Exam Exam: See Below Free Text/Narrative:: Right-sided chest port. Patient appears fatigued. 2+ pitting edema in bilateral lower extremities from feet to mid land. Exam Limited By: No Limitations General Appearance: Alert, No Apparent Distress Eye Exam: Bilateral Eye: Abnormal EOM, Normal Inspection, PERRL Head: Atraumatic, Normocephalic Neck: Normal Inspection, Supple, Non-Tender, Full Range of Motion Respiratory/Chest: No Respiratory Distress, No Accessory Muscle Use, Chest Non- Tender Cardiovascular: Normal Peripheral Pulses, Regular Rate, Rhythm, No Murmur Peripheral Pulses: 2+: Radial (L), Radial (R), Posterior Tibial (L), Posterior Tibial (R), Dorsalis Pedis (L), Dorsalis Pedis (R) GI/Abdominal: Normal Bowel Sounds, Soft, Non-Tender, No Distention Extremities: Normal Inspection, Normal Range of Motion, Non-Tender, Normal Capillary Refill, Pedal Edema Neurological: Alert, Oriented, CN II-XII Intact, No Motor/Sensory Deficits Skin Exam: Warm, Dry (decreased BS bilateral lower lobes) Course - Vital Signs Text/Narrative:: Zofran, solumedrol, IV, labs, and imaging ordered. Leukocytosis of >15 and lactate 3.4. CXR negative for pleural effusions and pneumonia. Hypokalemia 3.2. Potassium 40 mEq PO and 1 L NS ordered. Last Recorded V/S: Last Vital Signs Temp 36.4 C 09/10/19 02:39 Pulse 92 09/10/19 07:34 Resp 16 09/10/19 07:34 BP 107/68 09/10/19 07:34 Pulse Ox 97 09/10/19 07:34 - Orders/Labs/Meds Orders: Active Orders 24 hr Category Date Time Status Chest 1V Frontal [CR] Stat Exams 09/10/19 03:12 Taken CULTURE BLOOD [BC] Stat Lab 09/10/19 03:13 Ordered CULTURE BLOOD [BC] Stat Lab 09/10/19 03:16 Ordered Morphine Med 09/10/19 05:22 Active 4 mg IVPUSH Q2H PRN Sodium Chloride 0.9% [Saline Flush] Med 09/10/19 03:13 Active 10 ml FLUSH ASDIRECTED PRN Saline Lock Insert [OM.PC] Routine Oth 09/10/19 03:13 Ordered Resuscitation Status Stat Resus Stat 09/10/19 06:37 Ordered Medication Orders Morphine Sulfate (Morphine) 4 mg IVPUSH Q2H PRN PRN Reason: Pain (moderate 4-6) Last Admin: 09/10/19 05:35 Dose: 4 mg Documented by: USHA Sodium Chloride (Saline Flush) 10 ml FLUSH ASDIRECTED PRN PRN Reason: Keep Vein Open Last Admin: 09/10/19 03:49 Dose: 10 ml Documented by: Admin: 09/10/19 03:30 Dose: 10 ml Documented by: USHA Labs: Laboratory Tests 09/10/19 09/10/19 09/10/19 Range/Units 03:40 03:40 03:40 WBC 15.6 H D (4.0-11.0) K/uL RBC 4.14 L (4.50-6.50) M/uL Hgb 12.9 L (13.0-18.0) g/dL Hct 38.3 L (40.0-54.0) % MCV 93 (76-96) fL MCH 31.2 (27.0-32.0) pg MCHC 33.7 (31.0-35.0) g/dL RDW 15.0 (11.0-16.0) % Plt Count 282 (150-400) K/uL MPV 8.4 (6.0-10.0) fL Neut % (Auto) 96.7 H (45.0-70.0) % Lymph % (Auto) 1.0 L (20.0-40.0) % Thomas % (Auto) 2.0 L (3.0-10.0) % Eos % (Auto) 0.2 L (1.0-5.0) % Baso % (Auto) 0.1 (0.0-0.5) % Neut # (Auto) 15.09 H (2.00-7.50) K/uL Lymph # (Auto) 0.16 L (1.50-4.00) K/uL Thomas # (Auto) 0.32 (0.20-0.80) K/uL Eos # (Auto) 0.03 L (0.04-0.40) K/uL Baso # (Auto) 0.02 (0.02-0.10) K/uL Sodium 136 (136-145) mmol/L Potassium 3.2 L D (3.5-5.1) mmol/L Chloride 101 (98-107) mmol/L Carbon Dioxide 23.4 (21.0-32.0) mmol/L Anion Gap 14.8 (5.0-15.0) mmol/L BUN 7 L D (8-26) mg/dL Creatinine 0.80 (0.70-1.30) mg/dL Est Cr Clr Drug Dosing TNP Estimated GFR (MDRD) > 60 (>60) MLS/MIN BUN/Creatinine Ratio 8.8 (6-25) Glucose 131 H (74-100) mg/dL Lactic Acid 3.4 H (0.4-2.0) mmol/L Calcium 7.8 L (8.5-10.1) mg/dL Total Bilirubin 0.8 D (0.0-1.0) mg/dL AST 23 (15-37) U/L ALT 14 (12-78) U/L Alkaline Phosphatase 159 H (46-116) U/L B-Natriuretic Peptide (0-125) pg/mL Total Protein 6.2 L (6.4-8.2) g/dL Albumin 1.8 L (3.4-5.0) g/dL Globulin 4.4 H (2.2-4.2) g/dL Albumin/Globulin Ratio 0.4 L (0.8-2.0) Urine Color Urine Appearance (CLEAR) Urine pH (5.0-8.0) Ur Specific [place] (1.003-1.030) Urine Protein (NEGATIVE) mg/dL Urine Glucose (UA) (NEGATIVE) mg/dL Urine Ketones (NEGATIVE) mg/dL Urine Occult Blood (NEGATIVE) Urine Nitrite (NEGATIVE) Urine Bilirubin (NEGATIVE) Urine Urobilinogen (0.2-1.0) E.U./dL Ur Leukocyte Esterase (NEGATIVE) Urine RBC /HPF Urine WBC /HPF Ur Squamous Epith Cells /HPF Urine Bacteria /HPF 09/10/19 09/10/19 09/10/19 Range/Units 03:40 07:00 07:33 WBC (4.0-11.0) K/uL RBC (4.50-6.50) M/uL Hgb (13.0-18.0) g/dL Hct (40.0-54.0) % MCV (76-96) fL MCH (27.0-32.0) pg MCHC (31.0-35.0) g/dL RDW (11.0-16.0) % Plt Count (150-400) K/uL MPV (6.0-10.0) fL Neut % (Auto) (45.0-70.0) % Lymph % (Auto) (20.0-40.0) % Thomas % (Auto) (3.0-10.0) % Eos % (Auto) (1.0-5.0) % Baso % (Auto) (0.0-0.5) % Neut # (Auto) (2.00-7.50) K/uL Lymph # (Auto) (1.50-4.00) K/uL Thomas # (Auto) (0.20-0.80) K/uL Eos # (Auto) (0.04-0.40) K/uL Baso # (Auto) (0.02-0.10) K/uL Sodium (136-145) mmol/L Potassium (3.5-5.1) mmol/L Chloride (98-107) mmol/L Carbon Dioxide (21.0-32.0) mmol/L Anion Gap (5.0-15.0) mmol/L BUN (8-26) mg/dL Creatinine (0.70-1.30) mg/dL Est Cr Clr Drug Dosing Estimated GFR (MDRD) (>60) MLS/MIN BUN/Creatinine Ratio (6-25) Glucose (74-100) mg/dL Lactic Acid 2.4 H (0.4-2.0) mmol/L Calcium (8.5-10.1) mg/dL Total Bilirubin (0.0-1.0) mg/dL AST (15-37) U/L ALT (12-78) U/L Alkaline Phosphatase (46-116) U/L B-Natriuretic Peptide 3052 H (0-125) pg/mL Total Protein (6.4-8.2) g/dL Albumin (3.4-5.0) g/dL Globulin (2.2-4.2) g/dL Albumin/Globulin Ratio (0.8-2.0) Urine Color Yellow Urine Appearance Clear (CLEAR) Urine pH 6.5 (5.0-8.0) Ur Specific [place] 1.020 (1.003-1.030) Urine Protein 30 H (NEGATIVE) mg/dL Urine Glucose (UA) Negative (NEGATIVE) mg/dL Urine Ketones 15 H (NEGATIVE) mg/dL Urine Occult Blood Negative (NEGATIVE) Urine Nitrite Negative (NEGATIVE) Urine Bilirubin Negative (NEGATIVE) Urine Urobilinogen 0.2 (0.2-1.0) E.U./dL Ur Leukocyte Esterase Negative (NEGATIVE) Urine RBC Not seen /HPF Urine WBC 0-5 H /HPF Ur Squamous Epith Cells Few /HPF Urine Bacteria Few /HPF Meds: Medications Generic Name Dose Route Start Last Admin Trade Name Avis PRN Reason Stop Dose Admin Morphine Sulfate 4 mg 09/10/19 05:22 09/10/19 05:35 Morphine IVPUSH 4 mg Q2H PRN Administration Pain (moderate 4-6) Sodium Chloride 10 ml 09/10/19 03:13 09/10/19 03:49 Saline Flush FLUSH 10 ml ASDIRECTED PRN Administration Keep Vein Open Discontinued Medications Generic Name Dose Route Start Last Admin Trade Name Avis PRN Reason Stop Dose Admin Albuterol/Ipratropium 3 ml 09/10/19 02:45 09/10/19 02:45 Duoneb 3.0-0.5 Mg/3 Ml NEB 09/10/19 02:46 3 ml STAT STA Administration Sodium Chloride 1,000 mls @ 1,000 mls/sec 09/10/19 04:25 09/10/19 04:40 Normal Saline IV 09/10/19 04:26 1,000 mls/sec .BOLUS ONE Administration Methylprednisolone Sodium Succinate 125 mg 09/10/19 03:14 09/10/19 03:48 Solu-Medrol IV 09/10/19 03:15 125 mg NOW STA Administration Ondansetron HCl 4 mg 09/10/19 03:14 09/10/19 03:40 Zofran IVPUSH 09/10/19 03:15 4 mg ONETIME ONE Administration Potassium Chloride 40 meq 09/10/19 04:17 09/10/19 04:40 Klor-Con M20 PO 09/10/19 04:18 40 meq ONETIME ONE Administration Departure - Departure Time of Disposition: 08:30 Disposition: Home, Self-Care 01 Condition: Good Clinical Impression: Leukocytosis, unspecified Qualifiers: Leukocytosis type: unspecified Qualified Code(s): D72.829 - Elevated white blood cell count, unspecified - Discharge Information *PRESCRIPTION DRUG MONITORING PROGRAM REVIEWED*: Not Applicable *COPY OF PRESCRIPTION DRUG MONITORING REPORT IN PATIENT ALFREDO: Not Applicable Referrals: PCP,None [Primary Care Provider] - Forms: ED Department Discharge Care Plan Goals: Follow up with Dr. Elder and get ECHO set up. Take Augmentin 875 mg PO BID x 10 days with food. Continue all prescriptions as directed. Return to the ED for fever >102, unable to tolerate fluids, difficulty breathing/swallowing, and/or persistent/worsening symptoms. Sepsis Event Note (ED) - Focused Exam Vital Signs: Vital Signs Temp Pulse Resp BP Pulse Ox 09/10/19 07:34 92 16 107/68 97 09/10/19 02:39 36.4 C 102 H 20 113/69 96 - My Orders Last 24 Hours: My Active Orders 09/10/19 03:12 Chest 1V Frontal [CR] Stat 09/10/19 03:13 CULTURE BLOOD [BC] Stat Sodium Chloride 0.9% [Saline Flush] 10 ml FLUSH ASDIRECTED PRN Saline Lock Insert [OM.PC] Routine 09/10/19 03:16 CULTURE BLOOD [BC] Stat 09/10/19 05:22 Morphine 4 mg IVPUSH Q2H PRN 09/10/19 06:37 Resuscitation Status Stat - Assessment/Plan Last 24 Hours: My Active Orders 09/10/19 03:12 Chest 1V Frontal [CR] Stat 09/10/19 03:13 CULTURE BLOOD [BC] Stat Sodium Chloride 0.9% [Saline Flush] 10 ml FLUSH ASDIRECTED PRN Saline Lock Insert [OM.PC] Routine 09/10/19 03:16 CULTURE BLOOD [BC] Stat 09/10/19 05:22 Morphine 4 mg IVPUSH Q2H PRN 09/10/19 06:37 Resuscitation Status Stat
[2019-09-10] MEDS: Sodium Chloride 0.9% 10 ML Syringe FLUSH PRN ×2 (03:30→03:49)
[2019-09-10] MEDS ORDERED: Potassium Chloride 20 MEQ Tab.ER PO ONE (04:17)
[2019-09-10] MEDS ORDERED: Sodium Chloride 0.9% 1,000 ML IV ONE (04:25)
[2019-09-10] MEDS ORDERED: Morphine 4 MG/ML VIAL IVPUSH PRN (05:22)
[2019-09-10 07:40] VITALS: BP 107/68; PULSE 92
--- NOTE | 2019-09-10 08:41 | CR ---
DATE OF SERVICE: 09/10/19 CLINICAL DATA: asthma exacerbation AP CHEST: Comparison is made to a prior exam dated 12/05/18. The right-sided Dilip-Cath is unchanged in position. The heart size is normal. The patient is status post median sternotomy. The lungs are clear. No pneumothorax. No pleural effusions. No evidence of acute intrathoracic disease. [id number] [facility]
== END 2019-09-10 08:59 | disposition home or self-care (01) ==
LOC: LB.ED 02:37
DX: D72.829 Elevated white blood cell count, unspecified (principal); E78.00 Pure hypercholesterolemia, unspecified; I10 Essential (primary) hypertension; J45.909 Unspecified asthma, uncomplicated; K21.9 Gastro-esophageal reflux disease without esophagitis; M19.90 Unspecified osteoarthritis, unspecified site; Z79.82 Long term (current) use of aspirin; Z79.899 Other long term (current) drug therapy
CPT/HCPCS: 36415; 71045; 80053; 81001; 83605; 83880; 85025; 87040; 96374; 96375; 99284; 99285-25; A0425; A0429; A9270-GY; J2270; J2405; J2930; J7030; J7620-GY

== ENCOUNTER 2019-10-02 18:04 | Emergency (ER) | payer MEDICARE, BC ==
[~2019-10-02 18:04] MED LIST: Cephalexin 500 MG Cap ONE
--- NOTE | 2019-10-02 18:23 | EDM.PDOC ---
ED HPI GENERAL MEDICAL PROBLEM - General Chief Complaint: General Stated Complaint: Open Wound Time Seen by Provider: 10/02/19 18:04 Source of Information: Reports: Patient History Limitations: Reports: No Limitations - History of Present Illness INITIAL COMMENTS - FREE TEXT/NARRATIVE: Pt is a 69y/o male with port in his right upper chest wall. States he was in the shower and somehow scraped over his port with his right hand finger nails which result in tearing the skin over his port exposing the port. Called his oncologist's office who wanted him to be seen in ER and started on an abx. No other reason for this ER visit. Onset: Today Duration: Hour(s): Location: Reports: Chest Quality: Reports: Ache Severity: Mild Improves with: Reports: None Worsens with: Reports: None Associated Symptoms: Reports: No Other Symptoms Past Medical History Cardiovascular History: Reports: CAD, Stents Oncologic (Cancer) History: Reports: Pancreatic ED ROS GENERAL - Review of Systems Review Of Systems: See Below Constitutional: Reports: No Symptoms HEENT: Reports: No Symptoms Respiratory: Reports: No Symptoms Cardiovascular: Reports: No Symptoms Endocrine: Reports: No Symptoms GI/Abdominal: Reports: Constipation : Reports: No Symptoms Musculoskeletal: Reports: No Symptoms Skin: Reports: Wound Neurological: Reports: No Symptoms Psychiatric: Reports: No Symptoms ED EXAM, SKIN/RASH Exam: See Below Exam Limited By: No Limitations General Appearance: Alert, No Apparent Distress Ears: Normal External Exam Nose: Normal Inspection Throat/Mouth: Normal Inspection Head: Atraumatic Neck: Normal Inspection Respiratory/Chest: No Respiratory Distress, Lungs Clear, Normal Breath Sounds, No Accessory Muscle Use Cardiovascular: Regular Rate, Rhythm, No Murmur GI/Abdominal: Normal Bowel Sounds, Soft, No Distention, No Abnormal Bruit Extremities: Normal Inspection Neurological: Alert, Oriented, CN II-XII Intact, Normal Cognition Skin: Warm, Dry, Other (Right upper chest wall, excoriation of skin overlaying port; port i exposed but in place.) Location, Skin: Chest Characteristics: Other (excoriated/partial skin tear over port right upper chest wall) Course - Vital Signs Last Recorded V/S: Last Vital Signs Temp 97.4 F 10/02/19 18:31 Pulse 80 10/02/19 18:31 Resp 16 10/02/19 18:31 BP 110/50 L 10/02/19 18:31 Pulse Ox 97 10/02/19 18:31 Departure - Departure Time of Disposition: 18:15 Disposition: Home, Self-Care 01 Preliminary Cause of *Q: Cardiac Arrest Clinical Impression: Skin tear - Discharge Information *PRESCRIPTION DRUG MONITORING PROGRAM REVIEWED*: Not Applicable *COPY OF PRESCRIPTION DRUG MONITORING REPORT IN PATIENT ALFREDO: Not Applicable (Pt will call his oncologist tomorrow about port replacement determination prior to his schedule chemotherapy. Pt was given Rx for Cephalex 500mg from ER with instruction to take BID. He also can apply neosporin or bacitracin to wound.) Instructions: Wound Care, Adult Referrals: PCP,None [Primary Care Provider] - Forms: ED Department Discharge Care Plan Goals: Take medications as prescribed. Watch for signs of infections. Call Provider in [place] tomorrow regarding follow up. Sepsis Event Note (ED) - Focused Exam Vital Signs: Vital Signs Temp Pulse Resp BP Pulse Ox 10/02/19 18:31 97.4 F 80 16 110/50 L 97
== END 2019-10-02 18:31 | disposition home or self-care (01) ==
LOC: MERGE 18:04 → LB.ED 18:04
DX: S21.111A Laceration without foreign body of right front wall of thorax without penetration into thoracic cavity, initial encounter (principal); I25.10 Atherosclerotic heart disease of native coronary artery without angina pectoris; Z95.5 Presence of coronary angioplasty implant and graft; X58.XXXA Exposure to other specified factors, initial encounter
CPT/HCPCS: 99282; A9270; 99283

== ENCOUNTER 2019-10-13 08:25 | Emergency (ER) | payer MEDICARE, BC ==
[2019-10-13] MEDS ORDERED: Sodium Chloride 0.9% 1,000 ML IV SCH (09:45)
--- NOTE | 2019-10-13 09:56 | EDM.PDOC ---
ED HPI GENERAL MEDICAL PROBLEM - General Chief Complaint: General Stated Complaint: Fall at home Time Seen by Provider: 10/13/19 09:22 Source of Information: Reports: EMS History Limitations: Reports: No Limitations - History of Present Illness INITIAL COMMENTS - FREE TEXT/NARRATIVE: Pt was brought to ER via EMS after a fall at home from toilet. He had a prolonged time on toilet with a resultant small bowel movement; fell after wiping to floor and was unable to get up. Pt has Pancreatic CA and recently (2 days ago began outpatient physical therapy)states he felt somewhat OK yesterday but today has been very weak and sore in his lower back. Pt also ripped his right 2nd toenail off during fall. Onset: Today, Sudden Onset Date: 10/13/19 Onset Time: 08:30 Duration: Hour(s): Location: Reports: Back, Lower Extremity, Left Quality: Reports: Ache Severity: Mild Improves with: Reports: Rest Worsens with: Reports: Movement Treatments REGISTRATION COORDINATOR: Reports: Other (see below) (hydrocodone) - Related Data Allergies Allergy/AdvReac Type Severity Reaction Status Date / Time No Known Allergies Allergy Verified 10/13/19 09:28 Home Meds: Home Meds Aspirin [Adult Low Dose Aspirin EC] 81 mg PO BID 01/25/13 [History] Furosemide [Lasix] 20 mg PO DAILY 01/25/13 [History] Losartan Potassium [Cozaar] 25 mg PO DAILY 01/25/13 [History] Metoprolol Tartrate 25 mg PO BID 01/25/13 [History] Albuterol [Ventolin HFA] 2 puff IH Q4HR PRN 11/16/18 [History] Cetirizine HCl [All Day Allergy] 10 mg PO DAILY 11/16/18 [History] Cholecalciferol (Vitamin D3) [Vitamin D3] 25 mcg PO DAILY 11/16/18 [History] Colchicine [Colcrys] 0.6 mg PO ASDIRECTED PRN 11/16/18 [History] Indomethacin 50 mg PO TID PRN 11/16/18 [History] Mometasone Furoate [Asmanex] 2 puff IH DAILY 11/16/18 [History] Nitroglycerin [Nitrostat] 0.4 mg SL ASDIRECTED PRN 11/16/18 [History] Prochlorperazine [Compazine] 10 mg PO Q6H PRN 11/16/18 [History] Loperamide [Imodium AD] 2 mg PO ASDIRECTED PRN 09/10/19 [History] Hydrocodone/Acetaminophen [Hydrocodon-Acetaminophen 5-325] 1 - 2 each PO Q4H 10/13/19 [History] fentaNYL [Duragesic] 12 mcg TD Q72H 10/13/19 [History] polyethylene glycoL 3350 [MiraLAX] 17 gm PO BID 10/13/19 [History] Past Medical History HEENT History: Reports: Hard of Hearing, Impaired Vision Cardiovascular History: Reports: CAD, High Cholesterol, Hypertension, Stents Respiratory History: Reports: Asthma Gastrointestinal History: Reports: Gastritis, GERD Musculoskeletal History: Reports: Arthritis, Back Pain, Chronic, Osteoarthritis Other Immunologic History: currently on chemo Oncologic (Cancer) History: Reports: Pancreatic - Past Surgical History HEENT Surgical History: Reports: Cataract Surgery Cardiovascular Surgical History: Reports: Coronary Artery Bypass Social & Family History - Family History Family Medical History: Noncontributory - Caffeine Use Caffeine Use: Reports: Coffee Caffeine Use Comment: drinks coffe occassionally ED ROS GENERAL - Review of Systems Review Of Systems: See Below Constitutional: Reports: Weakness HEENT: Reports: No Symptoms Respiratory: Reports: Shortness of Breath Cardiovascular: Denies: Chest Pain Endocrine: Reports: Fatigue GI/Abdominal: Reports: Constipation : Reports: No Symptoms Musculoskeletal: Reports: Back Pain Skin: Reports: No Symptoms Neurological: Reports: No Symptoms Psychiatric: Reports: Depression ED EXAM, GENERAL - Physical Exam Exam: See Below Exam Limited By: No Limitations General Appearance: Alert, WD/WN, Mild Distress Throat/Mouth: Normal Inspection Head: Atraumatic, Normocephalic Neck: Normal Inspection, Supple, Non-Tender, Full Range of Motion Respiratory/Chest: No Respiratory Distress, Lungs Clear Cardiovascular: Tachycardia, Extra Beats GI/Abdominal: Soft. No: No Distention Back Exam: Paraspinal Tenderness, Other (paralumbar muscle tenderness) Extremities: No: Leg Pain Neurological: Alert, Oriented, CN II-XII Intact, Normal Cognition Psychiatric: Depressed Mood Skin Exam: Warm, Dry, Intact, Normal Color, Other (Mild peripheal edema lower legs) EKG INTERPRETATION EKG Date: 10/13/19 Time: 09:30 Rate (Beats/Min): 107 P-Wave: Variable QRS: Normal ST-T: Normal QT: Normal EKG Interpretation Comments: Sinus tachycardia 107; PACs Course - Vital Signs Last Recorded V/S: Last Vital Signs Temp 97.7 F 10/13/19 09:40 Pulse 105 H 10/13/19 09:40 Resp 18 10/13/19 09:40 BP 142/84 H 10/13/19 09:40 Pulse Ox 100 10/13/19 09:40 - Orders/Labs/Meds Orders: Active Orders 24 hr Category Date Time Status EKG Documentation Completion [RC] ASDIRECTED Care 10/13/19 09:55 Active Vital Signs [RC] PER UNIT ROUTINE Care 10/13/19 09:37 Active Chest 1V Frontal [CR] Urgent Exams 10/13/19 09:54 Taken Lumbar Spine 2 or 3V [CR] Stat Exams 10/13/19 09:57 Taken Sodium Chloride 0.9% [Normal Saline] 500 ml Med 10/13/19 11:32 Active IV ASDIRECTED Sodium Chloride 0.9% [Saline Flush] Med 10/13/19 11:36 Active 10 ml FLUSH ASDIRECTED PRN Saline Lock Insert [OM.PC] Routine Oth 10/13/19 11:36 Ordered Medication Orders Sodium Chloride (Normal Saline) 500 mls @ 500 mls/hr IV ASDIRECTED HUMBERTO Last Admin: 10/13/19 12:33 Dose: 500 mls/hr Documented by: JYOTHI Sodium Chloride (Saline Flush) 10 ml FLUSH ASDIRECTED PRN PRN Reason: Keep Vein Open Labs: Laboratory Tests 10/13/19 10/13/19 10/13/19 Range/Units 10:00 10:00 10:00 WBC 18.1 H (4.0-11.0) K/uL RBC 3.66 L (4.50-6.50) M/uL Hgb 11.0 L (13.0-18.0) g/dL Hct 33.6 L (40.0-54.0) % MCV 92 (76-96) fL MCH 30.1 (27.0-32.0) pg MCHC 32.7 (31.0-35.0) g/dL RDW 14.5 (11.0-16.0) % Plt Count 302 (150-400) K/uL MPV 9.3 (6.0-10.0) fL Neut % (Auto) 87.4 H (45.0-70.0) % Lymph % (Auto) 2.3 L (20.0-40.0) % Kimball % (Auto) 10.1 H (3.0-10.0) % Eos % (Auto) 0.1 L (1.0-5.0) % Baso % (Auto) 0.1 (0.0-0.5) % Neut # (Auto) 15.85 H (2.00-7.50) K/uL Lymph # (Auto) 0.41 L (1.50-4.00) K/uL Kimball # (Auto) 1.83 H (0.20-0.80) K/uL Eos # (Auto) 0.02 L (0.04-0.40) K/uL Baso # (Auto) 0.02 (0.02-0.10) K/uL Sodium 132 L (136-145) mmol/L Potassium 3.4 L (3.5-5.1) mmol/L Chloride 98 (98-107) mmol/L Carbon Dioxide 26.0 (21.0-32.0) mmol/L Anion Gap 11.4 (5.0-15.0) mmol/L BUN 6 L (8-26) mg/dL Creatinine 0.59 L D (0.70-1.30) mg/dL Est Cr Clr Drug Dosing 107.37 mL/min Estimated GFR (MDRD) > 60 (>60) MLS/MIN BUN/Creatinine Ratio 10.2 (6-25) Glucose 154 H (74-100) mg/dL Calcium 8.1 L (8.5-10.1) mg/dL Total Bilirubin 0.5 D (0.0-1.0) mg/dL AST 26 (15-37) U/L ALT 18 (12-78) U/L Alkaline Phosphatase 155 H (46-116) U/L Troponin I < 0.017 (0.000-0.060) ng/mL B-Natriuretic Peptide (0-125) pg/mL Total Protein 6.2 L (6.4-8.2) g/dL Albumin 1.6 L (3.4-5.0) g/dL Globulin 4.6 H (2.2-4.2) g/dL Albumin/Globulin Ratio 0.4 L (0.8-2.0) Urine Color Urine Appearance (CLEAR) Urine pH (5.0-8.0) Ur Specific [place] (1.003-1.030) Urine Protein (NEGATIVE) mg/dL Urine Glucose (UA) (NEGATIVE) mg/dL Urine Ketones (NEGATIVE) mg/dL Urine Occult Blood (NEGATIVE) Urine Nitrite (NEGATIVE) Urine Bilirubin (NEGATIVE) Urine Urobilinogen (0.2-1.0) E.U./dL Ur Leukocyte Esterase (NEGATIVE) Urine RBC /HPF Urine WBC /HPF Ur Squamous Epith Cells /HPF 10/13/19 10/13/19 Range/Units 10:00 13:00 WBC (4.0-11.0) K/uL RBC (4.50-6.50) M/uL Hgb (13.0-18.0) g/dL Hct (40.0-54.0) % MCV (76-96) fL MCH (27.0-32.0) pg MCHC (31.0-35.0) g/dL RDW (11.0-16.0) % Plt Count (150-400) K/uL MPV (6.0-10.0) fL Neut % (Auto) (45.0-70.0) % Lymph % (Auto) (20.0-40.0) % Kimball % (Auto) (3.0-10.0) % Eos % (Auto) (1.0-5.0) % Baso % (Auto) (0.0-0.5) % Neut # (Auto) (2.00-7.50) K/uL Lymph # (Auto) (1.50-4.00) K/uL Kimball # (Auto) (0.20-0.80) K/uL Eos # (Auto) (0.04-0.40) K/uL Baso # (Auto) (0.02-0.10) K/uL Sodium (136-145) mmol/L Potassium (3.5-5.1) mmol/L Chloride (98-107) mmol/L Carbon Dioxide (21.0-32.0) mmol/L Anion Gap (5.0-15.0) mmol/L BUN (8-26) mg/dL Creatinine (0.70-1.30) mg/dL Est Cr Clr Drug Dosing mL/min Estimated GFR (MDRD) (>60) MLS/MIN BUN/Creatinine Ratio (6-25) Glucose (74-100) mg/dL Calcium (8.5-10.1) mg/dL Total Bilirubin (0.0-1.0) mg/dL AST (15-37) U/L ALT (12-78) U/L Alkaline Phosphatase (46-116) U/L Troponin I (0.000-0.060) ng/mL B-Natriuretic Peptide 1564 H D (0-125) pg/mL Total Protein (6.4-8.2) g/dL Albumin (3.4-5.0) g/dL Globulin (2.2-4.2) g/dL Albumin/Globulin Ratio (0.8-2.0) Urine Color Yellow Urine Appearance Clear (CLEAR) Urine pH 6.5 (5.0-8.0) Ur Specific [place] 1.020 (1.003-1.030) Urine Protein Negative (NEGATIVE) mg/dL Urine Glucose (UA) Negative (NEGATIVE) mg/dL Urine Ketones Trace H (NEGATIVE) mg/dL Urine Occult Blood Negative (NEGATIVE) Urine Nitrite Negative (NEGATIVE) Urine Bilirubin Negative (NEGATIVE) Urine Urobilinogen 1.0 (0.2-1.0) E.U./dL Ur Leukocyte Esterase Negative (NEGATIVE) Urine RBC Not seen /HPF Urine WBC 0-5 H /HPF Ur Squamous Epith Cells Few /HPF Meds: Medications Generic Name Dose Route Start Last Admin Trade Name Freq PRN Reason Stop Dose Admin Sodium Chloride 500 mls @ 500 mls/hr 10/13/19 11:32 10/13/19 12:33 Normal Saline IV 500 mls/hr ASDIRECTED HUMBERTO Administration Sodium Chloride 10 ml 10/13/19 11:36 Saline Flush FLUSH ASDIRECTED PRN Keep Vein Open Discontinued Medications Generic Name Dose Route Start Last Admin Trade Name Freq PRN Reason Stop Dose Admin Sodium Chloride 1,000 mls @ 125 mls/hr 10/13/19 09:45 Normal Saline IV ASDIRECTED HUMBERTO - Re-Assessments/Exams Free Text/Narrative Re-Assessment/Exam: Pt has been resting without c/o new pain sx. Persists with his low back pain. Xray pending. 10/13/19 10:34 Free Text/Narrative Re-Assessment/Exam: 10/13/19 11:36 Review of labs elevated WBC 18.1, BNP elevated but significantly decreased from last month. Troponi - negative Free Text/Narrative Re-Assessment/Exam: 10/13/19 12:05 xray reports: CXR small zone of scarring at the left lung base L/S Spine there DJD with spurring at the disc margines and narrowing of the L4- L5 disc; there is no acute bone abnormality 10/13/19 13:44 urinalysis normal Pt will be discharged with instructions to call Dr Elder in AM for follow-up. He was taken home by ambulance as community service to help his manage to get him up the steps to get into their home. Departure - Departure Time of Disposition: 13:46 Disposition: Home, Self-Care 01 Condition: Fair Clinical Impression: Lumbar back pain, Weakness generalized, Pancreatic carcinoma - Discharge Information *PRESCRIPTION DRUG MONITORING PROGRAM REVIEWED*: No *COPY OF PRESCRIPTION DRUG MONITORING REPORT IN PATIENT ALFREDO: No Instructions: Pancreatic Cancer, What You Need to Know About Chronic Back Pain Referrals: PCP,None [Primary Care Provider] - Forms: ED Department Discharge Sepsis Event Note (ED) - Focused Exam Vital Signs: Vital Signs Temp Pulse Resp BP Pulse Ox 10/13/19 09:40 97.7 F 105 H 18 142/84 H 100 10/13/19 09:37 100 F 105 H 18 142/84 H 100 - My Orders Last 24 Hours: My Active Orders 10/13/19 09:37 Vital Signs [RC] PER UNIT ROUTINE 10/13/19 09:54 Chest 1V Frontal [CR] Urgent 10/13/19 09:55 EKG Documentation Completion [RC] ASDIRECTED 10/13/19 09:57 Lumbar Spine 2 or 3V [CR] Stat 10/13/19 11:32 Sodium Chloride 0.9% [Normal Saline] 500 ml IV ASDIRECTED 10/13/19 11:36 Sodium Chloride 0.9% [Saline Flush] 10 ml FLUSH ASDIRECTED PRN Saline Lock Insert [OM.PC] Routine - Assessment/Plan Last 24 Hours: My Active Orders 10/13/19 09:37 Vital Signs [RC] PER UNIT ROUTINE 10/13/19 09:54 Chest 1V Frontal [CR] Urgent 10/13/19 09:55 EKG Documentation Completion [RC] ASDIRECTED 10/13/19 09:57 Lumbar Spine 2 or 3V [CR] Stat 10/13/19 11:32 Sodium Chloride 0.9% [Normal Saline] 500 ml IV ASDIRECTED 10/13/19 11:36 Sodium Chloride 0.9% [Saline Flush] 10 ml FLUSH ASDIRECTED PRN Saline Lock Insert [OM.PC] Routine
[2019-10-13] MEDS ORDERED: Sodium Chloride 0.9% 10 ML Syringe FLUSH PRN (11:36)
[2019-10-13] MEDS: Sodium Chloride 0.9% 500 ML IV SCH (12:33)
--- NOTE | 2019-10-14 06:47 | CR ---
Date of Service: 10/13/19 Clinical Data: weakness AP CHEST: Comparison is made to a prior exam dated 09/10/19. The patient is status post median sternotomy. The heart size is within normal limits. The aorta is ectatic. There is chronic atelectasis/fibrosis in the left lung base. The lungs are otherwise clear. No pneumothorax. No pleural effusions. [id number] [facility]
--- NOTE | 2019-10-14 06:56 | CR ---
Date of Service: 10/13/19 Clinical Data: fall, low back pain LUMBAR SPINE: There is diffuse osteopenia. No acute fracture or dislocation. There is degenerative disk disease throughout the lower thoracic and lumbar spine. There is facet joint hypertrophy in the mid and lower lumbar spine. No focal lytic or blastic bone lesions. There are vascular stents noted in the pelvis and in the right upper abdomen. No other significant findings. [id number] [facility]
== END 2019-10-13 13:51 | disposition home or self-care (01) ==
LOC: LB.ED 08:25
DX: M54.5 Low back pain (principal); C25.9 Malignant neoplasm of pancreas, unspecified; R53.1 Weakness; R60.0 Localized edema; I10 Essential (primary) hypertension; I25.10 Atherosclerotic heart disease of native coronary artery without angina pectoris; M19.90 Unspecified osteoarthritis, unspecified site; R00.0 Tachycardia, unspecified; Z95.1 Presence of aortocoronary bypass graft; Z79.82 Long term (current) use of aspirin; Z79.899 Other long term (current) drug therapy; W18.11XA Fall from or off toilet without subsequent striking against object, initial encounter; Y92.009 Unspecified place in unspecified non-institutional (private) residence as the place of occurrence of the external cause
CPT/HCPCS: 36415; 71045; 72100; 80053; 81001; 83880; 84484; 85025; 93005; 99284-25; A0425; A0429; J7030

== ENCOUNTER 2019-10-15 06:15 | Emergency (ER) | payer MEDICARE, BC ==
[2019-10-15] MEDS ORDERED: Sodium Chloride 0.9% 1,000 ML IV ONE (07:21)
[2019-10-15] MEDS ORDERED: Sodium Chloride 0.9% 500 ML IV ONE (07:21)
[2019-10-15] MEDS ORDERED: Ondansetron 4 MG/2 ML SDV IVPUSH ONE (07:35)
[2019-10-15] MEDS ORDERED: Ondansetron 4 MG/2 ML SDV ONE (07:44)
[2019-10-15] MEDS ORDERED: Bacitracin Oint 1 GM U/D Packet TOP ONE (08:00)
--- NOTE | 2019-10-15 09:28 | EDM.PDOC ---
ED HPI GENERAL MEDICAL PROBLEM - General Chief Complaint: General Stated Complaint: Fall Time Seen by Provider: 10/15/19 07:00 Source of Information: Reports: Patient, EMS, Family History Limitations: Reports: No Limitations - History of Present Illness Onset: Unknown/Unsure Duration: Getting Worse Location: Reports: Generalized Severity: Moderate Improves with: Reports: None Worsens with: Reports: None Associated Symptoms: Reports: No Other Symptoms Middle Back Pain Score (Numeric/FACES): 9 - Related Data Allergies Allergy/AdvReac Type Severity Reaction Status Date / Time No Known Allergies Allergy Verified 10/15/19 07:15 Home Meds: Home Meds Aspirin [Adult Low Dose Aspirin EC] 81 mg PO BID 01/25/13 [History] Furosemide [Lasix] 20 mg PO DAILY 01/25/13 [History] Losartan Potassium [Cozaar] 25 mg PO DAILY 01/25/13 [History] Metoprolol Tartrate 25 mg PO BID 01/25/13 [History] Albuterol [Ventolin HFA] 2 puff IH Q4HR PRN 11/16/18 [History] Cetirizine HCl [All Day Allergy] 10 mg PO DAILY 11/16/18 [History] Cholecalciferol (Vitamin D3) [Vitamin D3] 25 mcg PO DAILY 11/16/18 [History] Colchicine [Colcrys] 0.6 mg PO ASDIRECTED PRN 11/16/18 [History] Indomethacin 50 mg PO TID PRN 11/16/18 [History] Mometasone Furoate [Asmanex] 2 puff IH DAILY 11/16/18 [History] Nitroglycerin [Nitrostat] 0.4 mg SL ASDIRECTED PRN 11/16/18 [History] Prochlorperazine [Compazine] 10 mg PO Q6H PRN 11/16/18 [History] Loperamide [Imodium AD] 2 mg PO ASDIRECTED PRN 09/10/19 [History] Hydrocodone/Acetaminophen [Hydrocodon-Acetaminophen 5-325] 1 - 2 each PO Q4H 10/13/19 [History] fentaNYL [Duragesic] 12 mcg TD Q72H 10/13/19 [History] polyethylene glycoL 3350 [MiraLAX] 17 gm PO BID 10/13/19 [History] Past Medical History HEENT History: Reports: Hard of Hearing, Impaired Vision Cardiovascular History: Reports: CAD, High Cholesterol, Hypertension, Stents Respiratory History: Reports: Asthma Gastrointestinal History: Reports: Gastritis, GERD Other Gastrointestinal History: pancreatic cancer Musculoskeletal History: Reports: Arthritis, Back Pain, Chronic, Osteoarthritis Hematologic History: Reports: None Other Immunologic History: currently on chemo Oncologic (Cancer) History: Reports: Pancreatic - Past Surgical History HEENT Surgical History: Reports: Cataract Surgery Cardiovascular Surgical History: Reports: Coronary Artery Bypass Social & Family History - Family History Family Medical History: Noncontributory - Tobacco Use Smoking Status *Q: Never Smoker Second Hand Smoke Exposure: No - Caffeine Use Caffeine Use: Reports: Coffee Caffeine Use Comment: drinks coffe occassionally - Recreational Drug Use Recreational Drug Use: No ED ROS GENERAL - Review of Systems Review Of Systems: See Below Constitutional: Reports: Weakness, Fatigue HEENT: Reports: No Symptoms Respiratory: Reports: No Symptoms Cardiovascular: Reports: Edema Endocrine: Reports: No Symptoms GI/Abdominal: Reports: Black Stool, Bloody Stool, Stool Incontinence : Reports: No Symptoms Musculoskeletal: Reports: Back Pain (chronic) Skin: Reports: Wound (skin tears on left elbow and forearm, open area from previous port, no signs of infection noted) Neurological: Reports: Weakness Psychiatric: Reports: No Symptoms ED EXAM, GENERAL - Physical Exam Exam: See Below Exam Limited By: No Limitations General Appearance: Alert, No Apparent Distress Ears: Normal External Exam Nose: Normal Inspection Throat/Mouth: Normal Inspection, Normal Voice Head: Atraumatic Neck: Normal Inspection, Non-Tender, Full Range of Motion Respiratory/Chest: No Respiratory Distress, Lungs Clear, Normal Breath Sounds Cardiovascular: No Murmur, Tachycardia Peripheral Pulses: 2+: Posterior Tibial (L), Posterior Tibial (R), Dorsalis Pedis (L), Dorsalis Pedis (R), 3+: Carotid (L), Carotid (R), Radial (L), Radial (R) GI/Abdominal: Normal Bowel Sounds, Soft, Non-Tender Rectal (Males) Exam: Heme + Stool Back Exam: Normal Inspection, Other (chronic lumbar back pain) Extremities: Normal Capillary Refill, Pedal Edema. No: Leg Pain Neurological: Alert, Oriented, Normal Cognition, No Motor/Sensory Deficits Psychiatric: Normal Affect, Normal Mood Skin Exam: Warm, Dry, Wound/Incision Course - Vital Signs Last Recorded V/S: Last Vital Signs Temp 97.7 F 10/15/19 07:00 Pulse 105 H 10/15/19 10:40 Resp 16 10/15/19 10:40 BP 120/59 L 10/15/19 10:40 Pulse Ox 98 10/15/19 10:40 - Orders/Labs/Meds Orders: Active Orders 24 hr Category Date Time Status EKG Documentation Completion [RC] ASDIRECTED Care 10/15/19 07:21 Active CULTURE BLOOD [BC] Stat Lab 10/15/19 10:14 Received CULTURE WOUND + SMEAR [RM] Stat Lab 10/15/19 10:43 Received Piperacillin/Tazobactam [Zosyn] 3.375 gm Med 10/15/19 09:45 Active Sodium Chloride 0.9% [Normal Saline] 100 ml IV Q6H Vancomycin Med 10/15/19 10:00 Active See Dose Instructions IV .PHARMACY TO DOSE EKG 12 Lead [EK] Routine Ther 10/15/19 07:21 Ordered Medication Orders Piperacillin Sod/Tazobactam (Sod 3.375 gm/ Sodium Chloride) 100 mls @ 100 mls/hr IV Q6H HUMBERTO Last Admin: 10/15/19 10:15 Dose: 100 mls/hr Documented by: GANESH Vancomycin HCl (Vancomycin) 0 gm IV .PHARMACY TO DOSE HUMBERTO Labs: Laboratory Tests 10/15/19 10/15/19 10/15/19 Range/Units 07:21 07:21 07:40 WBC Cancelled RBC Cancelled Hgb Cancelled Hct Cancelled MCV Cancelled MCH Cancelled MCHC Cancelled RDW Cancelled Plt Count Cancelled MPV Cancelled Neut % (Auto) Lymph % (Auto) [place] % (Auto) Eos % (Auto) Baso % (Auto) Neut # (Auto) Lymph # (Auto) [place] # (Auto) Eos # (Auto) Baso # (Auto) Add Manual Diff Neutrophils % (Manual) (45.0-70.0) % Lymphocytes % (Manual) (20.0-40.0) % Monocytes % (Manual) (3.0-10.0) % Eosinophils % (Manual) (1.0-5.0) % Platelet Estimate Sodium 132 L (136-145) mmol/L Potassium 4.4 D (3.5-5.1) mmol/L Chloride 100 (98-107) mmol/L Carbon Dioxide 23.4 (21.0-32.0) mmol/L Anion Gap 13.0 (5.0-15.0) mmol/L BUN 9 D (8-26) mg/dL Creatinine 0.66 L (0.70-1.30) mg/dL Est Cr Clr Drug Dosing 99.32 mL/min Estimated GFR (MDRD) > 60 (>60) MLS/MIN BUN/Creatinine Ratio 13.6 (6-25) Glucose 176 H (74-100) mg/dL Lactic Acid 3.9 H (0.4-2.0) mmol/L Calcium 7.3 L (8.5-10.1) mg/dL Total Bilirubin 0.6 (0.0-1.0) mg/dL AST 32 (15-37) U/L ALT 14 (12-78) U/L Alkaline Phosphatase 147 H (46-116) U/L Creatine Kinase (21-232) U/L Total Protein 5.5 L (6.4-8.2) g/dL Albumin 1.3 L (3.4-5.0) g/dL Globulin 4.2 (2.2-4.2) g/dL Albumin/Globulin Ratio 0.3 L (0.8-2.0) Urine Color Urine Appearance (CLEAR) Urine pH (5.0-8.0) Ur Specific [place] (1.003-1.030) Urine Protein (NEGATIVE) mg/dL Urine Glucose (UA) (NEGATIVE) mg/dL Urine Ketones (NEGATIVE) mg/dL Urine Occult Blood (NEGATIVE) Urine Nitrite (NEGATIVE) Urine Bilirubin (NEGATIVE) Urine Urobilinogen (0.2-1.0) E.U./dL Ur Leukocyte Esterase (NEGATIVE) Urine RBC /HPF Urine WBC /HPF Ur Squamous Epith Cells /HPF COVID-19 ([facility]) 10/15/19 10/15/19 10/15/19 Range/Units 08:49 09:18 09:18 WBC RBC Hgb Hct MCV MCH MCHC RDW Plt Count MPV Neut % (Auto) Lymph % (Auto) [place] % (Auto) Eos % (Auto) Baso % (Auto) Neut # (Auto) Lymph # (Auto) [place] # (Auto) Eos # (Auto) Baso # (Auto) Add Manual Diff Neutrophils % (Manual) (45.0-70.0) % Lymphocytes % (Manual) (20.0-40.0) % Monocytes % (Manual) (3.0-10.0) % Eosinophils % (Manual) (1.0-5.0) % Platelet Estimate Sodium (136-145) mmol/L Potassium (3.5-5.1) mmol/L Chloride (98-107) mmol/L Carbon Dioxide (21.0-32.0) mmol/L Anion Gap (5.0-15.0) mmol/L BUN (8-26) mg/dL Creatinine (0.70-1.30) mg/dL Est Cr Clr Drug Dosing mL/min Estimated GFR (MDRD) (>60) MLS/MIN BUN/Creatinine Ratio (6-25) Glucose (74-100) mg/dL Lactic Acid 1.7 (0.4-2.0) mmol/L Calcium (8.5-10.1) mg/dL Total Bilirubin (0.0-1.0) mg/dL AST (15-37) U/L ALT (12-78) U/L Alkaline Phosphatase (46-116) U/L Creatine Kinase 23 (21-232) U/L Total Protein (6.4-8.2) g/dL Albumin (3.4-5.0) g/dL Globulin (2.2-4.2) g/dL Albumin/Globulin Ratio (0.8-2.0) Urine Color Yellow Urine Appearance Slightly cloudy (CLEAR) Urine pH 7.5 (5.0-8.0) Ur Specific [place] 1.020 (1.003-1.030) Urine Protein 30 H (NEGATIVE) mg/dL Urine Glucose (UA) Negative (NEGATIVE) mg/dL Urine Ketones Negative (NEGATIVE) mg/dL Urine Occult Blood Negative (NEGATIVE) Urine Nitrite Negative (NEGATIVE) Urine Bilirubin Negative (NEGATIVE) Urine Urobilinogen 1.0 (0.2-1.0) E.U./dL Ur Leukocyte Esterase Negative (NEGATIVE) Urine RBC Not seen /HPF Urine WBC 0-5 H /HPF Ur Squamous Epith Cells Few /HPF COVID-19 ([facility]) 10/15/19 10/15/19 Range/Units 09:18 10:00 WBC 22.2 H* D RBC 2.69 L Hgb 8.2 L D Hct 24.7 L D MCV 92 MCH 30.5 MCHC 33.2 RDW 14.3 Plt Count 329 MPV 9.0 Neut % (Auto) [place] Lymph % (Auto) [place] % (Auto) [place] Eos % (Auto) [place] Baso % (Auto) [place] Neut # (Auto) [place] Lymph # (Auto) Tree Cutter [place] # (Auto) [place] Cutter Eos # (Auto) [place] Baso # (Auto) [place] Cutter Add Manual Diff Yes Neutrophils % (Manual) 80.0 H (45.0-70.0) % Lymphocytes % (Manual) 5.0 L (20.0-40.0) % Monocytes % (Manual) 14.0 H (3.0-10.0) % Eosinophils % (Manual) 1.0 (1.0-5.0) % Platelet Estimate Adequate Sodium (136-145) mmol/L Potassium (3.5-5.1) mmol/L Chloride (98-107) mmol/L Carbon Dioxide (21.0-32.0) mmol/L Anion Gap (5.0-15.0) mmol/L BUN (8-26) mg/dL Creatinine (0.70-1.30) mg/dL Est Cr Clr Drug Dosing mL/min Estimated GFR (MDRD) (>60) MLS/MIN BUN/Creatinine Ratio (6-25) Glucose (74-100) mg/dL Lactic Acid (0.4-2.0) mmol/L Calcium (8.5-10.1) mg/dL Total Bilirubin (0.0-1.0) mg/dL AST (15-37) U/L ALT (12-78) U/L Alkaline Phosphatase (46-116) U/L Creatine Kinase (21-232) U/L Total Protein (6.4-8.2) g/dL Albumin (3.4-5.0) g/dL Globulin (2.2-4.2) g/dL Albumin/Globulin Ratio (0.8-2.0) Urine Color Urine Appearance (CLEAR) Urine pH (5.0-8.0) Ur Specific [place] (1.003-1.030) Urine Protein (NEGATIVE) mg/dL Urine Glucose (UA) (NEGATIVE) mg/dL Urine Ketones (NEGATIVE) mg/dL Urine Occult Blood (NEGATIVE) Urine Nitrite (NEGATIVE) Urine Bilirubin (NEGATIVE) Urine Urobilinogen (0.2-1.0) E.U./dL Ur Leukocyte Esterase (NEGATIVE) Urine RBC /HPF Urine WBC /HPF Ur Squamous Epith Cells /HPF COVID-19 ([facility]) Negative Meds: Medications Generic Name Dose Route Start Last Admin Trade Name Freq PRN Reason Stop Dose Admin Piperacillin Sod/Tazobactam 100 mls @ 100 mls/hr 10/15/19 09:45 10/15/19 10:15 Sod 3.375 gm/ Sodium Chloride IV 100 mls/hr Q6H HUMBERTO Administration Vancomycin HCl 0 gm 10/15/19 10:00 Vancomycin IV .PHARMACY TO DOSE HUMBERTO Discontinued Medications Generic Name Dose Route Start Last Admin Trade Name Freq PRN Reason Stop Dose Admin Sodium Chloride 500 mls @ 500 mls/hr 10/15/19 07:21 10/15/19 10:30 Normal Saline IV 10/15/19 08:20 500 mls/hr .BOLUS ONE Administration Sodium Chloride 1,000 mls @ 999 mls/hr 10/15/19 07:21 10/15/19 07:25 Normal Saline IV 10/15/19 08:21 999 mls/hr .BOLUS ONE Administration Prochlorperazine Edisylate 10 52 mls @ 150 mls/hr 10/15/19 11:04 mg/ Sodium Chloride IV 10/15/19 11:24 ONETIME ONE Ondansetron HCl 8 mg 10/15/19 07:35 10/15/19 07:45 Zofran IVPUSH 10/15/19 07:36 8 mg ONETIME ONE Administration Ondansetron HCl Confirm 10/15/19 07:44 10/15/19 09:51 Zofran Administered 10/15/19 07:45 Not Given Dose 8 mg .ROUTE .STK-MED ONE Prochlorperazine Edisylate Confirm 10/15/19 11:13 10/15/19 11:07 Compazine Administered 10/15/19 11:14 Not Given Dose 10 mg .ROUTE .STK-MED ONE Prochlorperazine Edisylate 10 mg 10/15/19 11:04 Compazine IVPUSH 10/15/19 11:05 ONETIME ONE Departure - Departure Time of Disposition: 11:45 Disposition: DC/Tfer to Acute Hospital 02 Condition: Fair Clinical Impression: Weakness generalized GI bleed Qualifiers: GI bleed type/associated pathology: unspecified gastrointestinal hemorrhage type Qualified Code(s): K92.2 - Gastrointestinal hemorrhage, unspecified Sepsis Qualifiers: Sepsis type: sepsis due to unspecified organism Sepsis acute organ dysfunction status: unspecified Qualified Code(s): A41.9 - Sepsis, unspecified organism - Discharge Information *PRESCRIPTION DRUG MONITORING PROGRAM REVIEWED*: Not Applicable *COPY OF PRESCRIPTION DRUG MONITORING REPORT IN PATIENT ALFREDO: Not Applicable Instructions: Gastrointestinal Bleeding, Sepsis, Diagnosis, Adult Referrals: PCP,None [Primary Care Provider] - Forms: ED Department Discharge Sepsis Event Note (ED) - Evaluation Current Stage of Sepsis: Sepsis Possible Source of Sepsis: Skin/Soft Tissue - Focused Exam Sepsis Event Note Statement: Focused Sepsis Exam Completed Vital Signs: Vital Signs Temp Pulse Resp BP Pulse Ox 10/15/19 10:40 105 H 16 120/59 L 98 10/15/19 09:50 108 H 20 116/65 100 10/15/19 09:10 109 H 20 95/62 97 10/15/19 08:30 108 H 16 88/55 L 10/15/19 08:12 108 H 20 97/59 L 100 10/15/19 07:30 103 H 18 91/57 L 98 10/15/19 07:10 106 H 21 H 75/43 L 97 10/15/19 07:04 115 H 16 87/48 L 98 10/15/19 07:01 109 H 17 90/44 L 99 10/15/19 07:00 97.7 F 110 H 20 84/45 L 99 Capillary Refill, Detail: Less than/Equal to (</=) 2 Seconds Pulse Description: 2+ Normal Peripheral Pulse Location: Radial Skin Exam (Focused Sepsis): Normal Turgor, [place] Date Exam was Performed: 10/15/19 Time Exam was Performed: 09:30 - Bedside Monitoring Bedside Ultrasound Performed: No Fluid Bolus Goal: 2500ml Date Bedside Monitoring was Performed: 10/15/19 Time Bedside Monitoring was Performed: 11:52 - My Orders Last 24 Hours: My Active Orders 10/15/19 07:21 EKG Documentation Completion [RC] ASDIRECTED EKG 12 Lead [EK] Routine 10/15/19 09:45 Piperacillin/Tazobactam [Zosyn] 3.375 gm Sodium Chloride 0.9% [Normal Saline] 100 ml IV Q6H 10/15/19 10:00 Vancomycin See Dose Instructions IV .PHARMACY TO DOSE 10/15/19 10:14 CULTURE BLOOD [BC] Stat 10/15/19 10:43 CULTURE WOUND + SMEAR [RM] Stat - Assessment/Plan Last 24 Hours: My Active Orders 10/15/19 07:21 EKG Documentation Completion [RC] ASDIRECTED EKG 12 Lead [EK] Routine 10/15/19 09:45 Piperacillin/Tazobactam [Zosyn] 3.375 gm Sodium Chloride 0.9% [Normal Saline] 100 ml IV Q6H 10/15/19 10:00 Vancomycin See Dose Instructions IV .PHARMACY TO DOSE 10/15/19 10:14 CULTURE BLOOD [BC] Stat 10/15/19 10:43 CULTURE WOUND + SMEAR [RM] Stat Plan: Transport by to [place] for further GI and septic workup. Accepting physician Dr. Dawkins. Patient will go to intermediate care. IV zosyn and vanyco started prior to transport.
[2019-10-15] MEDS ORDERED: Piperacillin/Tazobactam 3.375 GM in Sodium Chloride 0.9% 100 ML IV SCH (09:45)
[2019-10-15] MEDS ORDERED: Vancomycin 1 GM SDV IV SCH (10:00)
[2019-10-15] MEDS ORDERED: Prochlorperazine 10 MG/2 ML SDV IVPUSH ONE (11:04)
[2019-10-15] MEDS ORDERED: Prochlorperazine 10 MG in Sodium Chloride 0.9% 50 ML IV ONE (11:04)
[2019-10-15] MEDS ORDERED: Prochlorperazine 10 MG/2 ML SDV ONE (11:13)
== END 2019-10-15 11:45 ==
LOC: LB.ED 06:15
DX: A41.9 Sepsis, unspecified organism (principal); K92.2 Gastrointestinal hemorrhage, unspecified; Z20.828 Contact with and (suspected) exposure to other viral communicable diseases; I10 Essential (primary) hypertension; I25.10 Atherosclerotic heart disease of native coronary artery without angina pectoris; J45.909 Unspecified asthma, uncomplicated; M19.90 Unspecified osteoarthritis, unspecified site; Z95.5 Presence of coronary angioplasty implant and graft; Z79.82 Long term (current) use of aspirin; Z79.899 Other long term (current) drug therapy
CPT/HCPCS: 36415; 80053; 81001; 82550; 83605; 85025; 87040; 87070; 87077; 87186; 87205; 93005; 96361; 96365; 96375; 99285; A0425; A0429; J2405; J2543; J7030; J7040; J7050; U0002; 99284

== ENCOUNTER 2020-05-10 13:28 | Inpatient (IN) | payer MEDICARE, BC ==
[~2020-05-10 13:28] MED LIST changes: -Cephalexin 500 MG Cap ONE; +fentaNYL 25 MCG/HR Transdermal Patch TRDERM SCH
--- NOTE | 2020-05-10 14:00 | EDM.PDOC ---
ED HPI GENERAL MEDICAL PROBLEM - General Chief Complaint: General Stated Complaint: pancreatic cancer with mets Time Seen by Provider: 05/10/20 13:40 Source of Information: Reports: Patient History Limitations: Reports: No Limitations - History of Present Illness INITIAL COMMENTS - FREE TEXT/NARRATIVE: 70 year old male with PMH of pancreatic CA with mets presents today with inc reased generalized weakness and increases LE/abdominal edema. He received his 2nd COVID shot and feels that the weakness started shortly after. He was unable to get off the commode today, EMS was called. Patient denies any pain at this time, he put on a new fentynal patch. Patient states he has been drinking and eating at home as normal. He was at PCP last week and had his lasix increased, 60mg Monday and Monday, but the edema remains. Patient presents jaundice, Jeny CABA from [facility] states the patient was not jaundice on . 1409 Melinda arrived, states the patient has had increased weakness fo quite sometime, and confirmed that the jaundice is new since . She reports that the patient has not had any solid food since Monday last week and has not been taking in fluids much. Improves with: Reports: None Worsens with: Reports: None Associated Symptoms: Reports: Weakness - Related Data Allergies Allergy/AdvReac Type Severity Reaction Status Date / Time No Known Allergies Allergy Verified 10/15/19 07:15 Home Meds: Home Meds Aspirin [Adult Low Dose Aspirin EC] 81 mg PO BID 01/25/13 [History] Furosemide [Lasix] 20 mg PO DAILY 01/25/13 [History] Losartan Potassium [Cozaar] 25 mg PO DAILY 01/25/13 [History] Metoprolol Tartrate 25 mg PO BID 01/25/13 [History] Albuterol [Ventolin HFA] 2 puff IH Q4HR PRN 11/16/18 [History] Cetirizine HCl [All Day Allergy] 10 mg PO DAILY 11/16/18 [History] Cholecalciferol (Vitamin D3) [Vitamin D3] 25 mcg PO DAILY 11/16/18 [History] Colchicine [Colcrys] 0.6 mg PO ASDIRECTED PRN 11/16/18 [History] Indomethacin 50 mg PO TID PRN 11/16/18 [History] Mometasone Furoate [Asmanex] 2 puff IH DAILY 11/16/18 [History] Nitroglycerin [Nitrostat] 0.4 mg SL ASDIRECTED PRN 11/16/18 [History] Prochlorperazine [Compazine] 10 mg PO Q6H PRN 11/16/18 [History] Loperamide [Imodium AD] 2 mg PO ASDIRECTED PRN 09/10/19 [History] Hydrocodone/Acetaminophen [Hydrocodon-Acetaminophen 5-325] 1 - 2 each PO Q4H 10/13/19 [History] fentaNYL [Duragesic] 12 mcg TD Q72H 10/13/19 [History] polyethylene glycoL 3350 [MiraLAX] 17 gm PO BID 10/13/19 [History] Past Medical History HEENT History: Reports: Hard of Hearing, Impaired Vision Cardiovascular History: Reports: CAD, High Cholesterol, Hypertension, Stents Respiratory History: Reports: Asthma Gastrointestinal History: Reports: Gastritis, GERD Other Gastrointestinal History: pancreatic cancer Musculoskeletal History: Reports: Arthritis, Back Pain, Chronic, Osteoarthritis Hematologic History: Reports: None Other Immunologic History: currently on chemo Oncologic (Cancer) History: Reports: Pancreatic - Past Surgical History HEENT Surgical History: Reports: Cataract Surgery Cardiovascular Surgical History: Reports: Coronary Artery Bypass Social & Family History - Family History Family Medical History: No Pertinent Family History - Caffeine Use Caffeine Use: Reports: Coffee Caffeine Use Comment: drinks coffe occassionally ED ROS GENERAL - Review of Systems Review Of Systems: See Below Constitutional: Reports: Weakness, Fatigue HEENT: Reports: No Symptoms Respiratory: Reports: No Symptoms Cardiovascular: Reports: Edema Endocrine: Reports: No Symptoms GI/Abdominal: Reports: No Symptoms, Other (edematous abd) Musculoskeletal: Reports: Back Pain (chronic, pain under control at this time) Skin: Reports: Jaundice Neurological: Reports: Weakness Psychiatric: Reports: No Symptoms Immunologic: Reports: No Symptoms ED EXAM, GENERAL - Physical Exam Exam: See Below General Appearance: Obtunded, Mild Distress Eye Exam: Bilateral Eye: Other (bilateral jaundice) Ears: Normal External Exam Ear Exam: Bilateral Ear: Other (bilateral cereum ) Nose: Normal Inspection, Normal Mucosa, No Blood Throat/Mouth: Normal Inspection, Normal Lips, Normal Teeth, Other (dry mouth) Head: Atraumatic Neck: Normal Inspection, Non-Tender, Full Range of Motion Respiratory/Chest: No Respiratory Distress, Normal Breath Sounds, Decreased Breath Sounds (decreased bilaterally, poor effort) Course - Vital Signs Last Recorded V/S: Last Vital Signs Temp 98.6 F 05/10/20 14:00 Pulse 98 05/10/20 14:00 Resp 20 05/10/20 14:00 BP 116/48 L 05/10/20 14:00 Pulse Ox 96 05/10/20 14:00 - Orders/Labs/Meds Orders: Active Orders 24 hr Category Date Time Status Admission Status [Patient Status] [ADT] Routine ADT 05/10/20 15:10 Active Patient Status [ADT] Routine ADT 05/10/20 15:00 Active EKG Documentation Completion [RC] ASDIRECTED Care 05/10/20 13:50 Active Amaya Catheter Insertion [Insert Urinary Catheter] [OM. Care 05/10/20 14:37 Ordered PC] Stat Urinary Catheter Assessment [RC] ASDIRECTED Care 05/10/20 14:37 Active Vital Signs [RC] Q8H Care 05/10/20 14:59 Active CXR [Chest 1V Frontal] [CR] Stat Exams 05/10/20 13:49 Taken UA RFX JUAN AND CULT IF INDIC [URIN] Stat Lab 05/10/20 14:07 Ordered Sodium Chloride 0.9% [Saline Flush] Med 05/10/20 13:49 Active 10 ml FLUSH ASDIRECTED PRN Peripheral IV Insertion Adult [OM.PC] Routine Oth 05/10/20 13:49 Ordered Code Status [Resuscitation Status] Stat Resus Stat 05/10/20 15:08 Ordered Medication Orders Sodium Chloride (Sodium Chloride 0.9% 10 Ml Syringe) 10 ml FLUSH ASDIRECTED PRN PRN Reason: Keep Vein Open Labs: Laboratory Tests 05/10/20 05/10/20 05/10/20 Range/Units 13:49 13:49 13:55 WBC 32.8 H* D (4.0-11.0) K/uL RBC 3.50 L (4.50-6.50) M/uL Hgb 12.0 L (13.0-18.0) g/dL Hct 34.1 L (40.0-54.0) % MCV 97 H (76-96) fL MCH 34.3 H (27.0-32.0) pg MCHC 35.2 H (31.0-35.0) g/dL RDW 19.4 H (11.0-16.0) % Plt Count 212 D (150-400) K/uL MPV 10.8 H (6.0-10.0) fL Neut % (Auto) Wireless Field Technician Lymph % (Auto) Wireless Field Technician [place] % (Auto) Wireless Field Technician Eos % (Auto) Wireless Field Technician Baso % (Auto) Wireless Field Technician Neut # (Auto) Wireless Field Technician Lymph # (Auto) Wireless Field Technician [place] # (Auto) Wireless Field Technician Eos # (Auto) Wireless Field Technician Baso # (Auto) Wireless Field Technician Add Manual Diff Yes Neutrophils % (Manual) 84.0 H (45.0-70.0) % Band Neutrophils % 1.0 % Lymphocytes % (Manual) 3.0 L (20.0-40.0) % Monocytes % (Manual) 11.0 H (3.0-10.0) % Basophils % (Manual) 1.0 H (0.0-0.5) % Differential Comment VBG pH (7.31-7.41) VBG pO2 (30-50) mm/Hg VBG HCO3 (23.0-28.0) mmol/L VBG Base Excess (-2-3) mm/L O2 Delivery Device Sodium 139 (136-145) mmol/L Potassium 4.0 (3.5-5.1) mmol/L Chloride 104 (98-107) mmol/L Carbon Dioxide 23.7 (21.0-32.0) mmol/L Anion Gap 15.3 H (5.0-15.0) mmol/L BUN 22 D (8-26) mg/dL Creatinine 1.13 D (0.70-1.30) mg/dL Est Cr Clr Drug Dosing TNP Estimated GFR (MDRD) > 60 (>60) MLS/MIN BUN/Creatinine Ratio 19.5 (6-25) Glucose 134 H D (74-100) mg/dL Lactic Acid 4.9 H (0.4-2.0) mmol/L Calcium 7.4 L (8.5-10.1) mg/dL Total Bilirubin 5.3 H D (0.0-1.0) mg/dL AST 72 H (15-37) U/L ALT 55 (12-78) U/L Alkaline Phosphatase 1278 H (46-116) U/L Ammonia (11-32) umol/L Troponin I < 0.017 (0.000-0.060) ng/mL B-Natriuretic Peptide 2654 H D (0-125) pg/mL Total Protein 5.0 L (6.4-8.2) g/dL Albumin 1.0 L (3.4-5.0) g/dL Globulin 4.0 (2.2-4.2) g/dL Albumin/Globulin Ratio 0.3 L (0.8-2.0) Lipase (73-393) U/L 05/10/20 05/10/20 05/10/20 Range/Units 13:55 13:55 13:55 WBC (4.0-11.0) K/uL RBC (4.50-6.50) M/uL Hgb (13.0-18.0) g/dL Hct (40.0-54.0) % MCV (76-96) fL MCH (27.0-32.0) pg MCHC (31.0-35.0) g/dL RDW (11.0-16.0) % Plt Count (150-400) K/uL MPV (6.0-10.0) fL Neut % (Auto) Lymph % (Auto) [place] % (Auto) Eos % (Auto) Baso % (Auto) Neut # (Auto) Lymph # (Auto) [place] # (Auto) Eos # (Auto) Baso # (Auto) Add Manual Diff Neutrophils % (Manual) (45.0-70.0) % Band Neutrophils % % Lymphocytes % (Manual) (20.0-40.0) % Monocytes % (Manual) (3.0-10.0) % Basophils % (Manual) (0.0-0.5) % Differential Comment VBG pH 7.59 H* (7.31-7.41) VBG pO2 123.7 H (30-50) mm/Hg VBG HCO3 18.1 L (23.0-28.0) mmol/L VBG Base Excess -3.6 L (-2-3) mm/L O2 Delivery Device Nasal cannula Sodium (136-145) mmol/L Potassium (3.5-5.1) mmol/L Chloride (98-107) mmol/L Carbon Dioxide (21.0-32.0) mmol/L Anion Gap (5.0-15.0) mmol/L BUN (8-26) mg/dL Creatinine (0.70-1.30) mg/dL Est Cr Clr Drug Dosing Estimated GFR (MDRD) (>60) MLS/MIN BUN/Creatinine Ratio (6-25) Glucose (74-100) mg/dL Lactic Acid (0.4-2.0) mmol/L Calcium (8.5-10.1) mg/dL Total Bilirubin (0.0-1.0) mg/dL AST (15-37) U/L ALT (12-78) U/L Alkaline Phosphatase (46-116) U/L Ammonia 55 H (11-32) umol/L Troponin I (0.000-0.060) ng/mL B-Natriuretic Peptide (0-125) pg/mL Total Protein (6.4-8.2) g/dL Albumin (3.4-5.0) g/dL Globulin (2.2-4.2) g/dL Albumin/Globulin Ratio (0.8-2.0) Lipase 12 L D (73-393) U/L Meds: Medications Generic Name Dose Route Start Last Admin Trade Name Freq PRN Reason Stop Dose Admin Sodium Chloride 10 ml 05/10/20 13:49 Sodium Chloride 0.9% 10 Ml Syringe FLUSH ASDIRECTED PRN Keep Vein Open Discontinued Medications Generic Name Dose Route Start Last Admin Trade Name Freq PRN Reason Stop Dose Admin Morphine Sulfate Confirm 05/10/20 15:28 Morphine Oral Concentrate 20 Mg/Ml 30 Ml Bottle Administered 05/10/20 15:29 Dose 600 mg .ROUTE .STK-MED ONE Morphine Sulfate Confirm 05/10/20 15:30 Morphine 10 Mg/Ml Sdv Administered 05/10/20 15:31 Dose 30 mg .ROUTE .STK-MED ONE Departure - Departure Time of Disposition: 15:12 Disposition: DC/Tfer W/I Hosp To Swing [facility] Condition: Poor Clinical Impression: Pain, Weakness generalized, End of life care, Pancreatic carcinoma metastatic to liver - Discharge Information *PRESCRIPTION DRUG MONITORING PROGRAM REVIEWED*: Not Applicable *COPY OF PRESCRIPTION DRUG MONITORING REPORT IN PATIENT ALFREDO: Not Applicable Referrals: PCP,None [Primary Care Provider] - Forms: ED Department Discharge Sepsis Event Note (ED) - Focused Exam Vital Signs: Vital Signs Temp Pulse Resp BP Pulse Ox 05/10/20 14:00 98.6 F 98 20 116/48 L 96 - My Orders Last 24 Hours: My Active Orders 05/10/20 13:49 CXR [Chest 1V Frontal] [CR] Stat Sodium Chloride 0.9% [Saline Flush] 10 ml FLUSH ASDIRECTED PRN Peripheral IV Insertion Adult [OM.PC] Routine 05/10/20 13:50 EKG Documentation Completion [RC] ASDIRECTED 05/10/20 14:07 UA RFX JUAN AND CULT IF INDIC [URIN] Stat 05/10/20 14:37 Amaya Catheter Insertion [Insert Urinary Catheter] [OM.PC] Stat Urinary Catheter Assessment [RC] ASDIRECTED 05/10/20 14:59 Vital Signs [RC] Q8H 05/10/20 15:00 Patient Status [ADT] Routine 05/10/20 15:08 Code Status [Resuscitation Status] Stat 05/10/20 15:10 Admission Status [Patient Status] [ADT] Routine - Assessment/Plan Last 24 Hours: My Active Orders 05/10/20 13:49 CXR [Chest 1V Frontal] [CR] Stat Sodium Chloride 0.9% [Saline Flush] 10 ml FLUSH ASDIRECTED PRN Peripheral IV Insertion Adult [OM.PC] Routine 05/10/20 13:50 EKG Documentation Completion [RC] ASDIRECTED 05/10/20 14:07 UA RFX JUAN AND CULT IF INDIC [URIN] Stat 05/10/20 14:37 Amaya Catheter Insertion [Insert Urinary Catheter] [OM.PC] Stat Urinary Catheter Assessment [RC] ASDIRECTED 05/10/20 14:59 Vital Signs [RC] Q8H 05/10/20 15:00 Patient Status [ADT] Routine 05/10/20 15:08 Code Status [Resuscitation Status] Stat 05/10/20 15:10 Admission Status [Patient Status] [ADT] Routine Plan: Spoke with of the patient about code status, he saw his oncologist last week and was given 3-6 monthe, but she feels that he has had a rapid decline in the past few days. He is a DNR/DNI, she does not want ANY treatments as we discussed ex. antibiotics, IV medications, further radiology tests. She verbalized understanding of the DNR/DNI. Patient is on a fentynal patch and oxycodone which has managed his pain but now his pain has increased as well as his weakness. Patient will be admitted to inpatient for pain control. 1545 Called suzanne spoke with Gianluca about conversion from fentanyl patch 25mcg, to [employer]ER morphine. She will call back with correct conversion doseage.
[2020-05-10] MEDS ORDERED: Morphine Oral Concentrate 20 MG/ML 30 ML Bottle ONE (15:28)
[2020-05-10] MEDS ORDERED: Morphine 10 MG/ML SDV ONE (15:30)
[2020-05-10] MEDS: Morphine 2 MG/ML SYRINGE IVPUSH PRN ×2 (18:26→23:49)
[2020-05-11] MEDS: Morphine 2 MG/ML SYRINGE IVPUSH PRN ×6 (08:05→22:38)
[2020-05-11] MEDS: Sodium Chloride 0.9% 10 ML Syringe FLUSH PRN ×4 (08:05→22:41)
--- NOTE | 2020-05-11 08:36 | CR ---
DATE OF SERVICE: 05/10/20 CLINICAL DATA: weakness PORTABLE AP CHEST: No priors. The patient has taken a poor inspiration. The patient is status post median sternotomy. The heart size is normal. There is poorly defined ground glass opacity in the right mid and lower lung. There are mild interstitial changes throughout both lungs. Mild atelectatic change in the left lung base. The lungs are otherwise clear. No pneumothorax. No pleural effusions. [id number] [facility]
[2020-05-12] MEDS: Morphine 2 MG/ML SYRINGE IVPUSH PRN ×7 (00:44→22:52)
[2020-05-12] MEDS: LORazepam 2 MG/ML SDV IVPUSH PRN ×3 (02:14→16:04)
[2020-05-12] MEDS: Sodium Chloride 0.9% 10 ML Syringe FLUSH PRN ×4 (07:40→22:52)
[2020-05-12] MEDS ORDERED: fentaNYL 25 MCG/HR Transdermal Patch TRDERM SCH (11:36)
[2020-05-12] MEDS: fentaNYL 50 MCG/HR Transdermal Patch TRDERM SCH ×2 (15:13→15:28)
[2020-05-13] MEDS: Morphine 2 MG/ML SYRINGE IVPUSH PRN ×3 (02:30→08:43)
[2020-05-13] MEDS: LORazepam 2 MG/ML SDV IVPUSH PRN (05:53)
--- NOTE | 2020-05-13 08:15 | PCM.PN ---
- General Info Date of Service: 05/11/20 Subjective Update: This is a 70yo M with end stage metastatic pancreatic cancer admitted for management of his pain and symptoms. He is currently alert at brief moments with at bedside. Functional Status: Reports: Pain Controlled - Review of Systems General: Reports: Weakness, Fatigue, Malaise HEENT: Reports: No Symptoms Pulmonary: Reports: Shortness of Breath Cardiovascular: Reports: Dyspnea on Exertion Gastrointestinal: Reports: Decreased Appetite, Nausea Genitourinary: Reports: No Symptoms Musculoskeletal: Reports: Joint Pain Skin: Reports: Jaundice Neurological: Reports: Confusion, Difficulty Walking, Weakness Psychiatric: Reports: Confusion, Depression - Patient Data Vitals - Most Recent: Last Vital Signs Temp 36.2 C 05/12/20 07:56 Pulse 116 H 05/12/20 07:56 Resp 14 05/12/20 07:56 BP 103/70 05/12/20 07:56 Pulse Ox 96 05/12/20 07:56 Weight - Most Recent: 86.183 kg I&O - Last 24 Hours: Intake & Output 05/12/20 05/13/20 05/13/20 22:59 06:59 14:59 Intake Total 0 Output Total 75 Balance -75 Med Orders - Current: Current Medications Fentanyl (Fentanyl 50 Mcg/Hr Transdermal Patch) 50 mcg TRDERM Q72H [facility] Stop: 05/15/20 15:00 Last Admin: 05/12/20 15:28 Dose: 50 mcg Documented by: Lorazepam (Lorazepam 2 Mg/Ml Sdv) 1 mg IVPUSH Q6H PRN PRN Reason: Anxiety Last Admin: 05/13/20 05:53 Dose: 1 mg Documented by: Miscellaneous Information (Remove Patch) 1 ea TRDERM Q72H [facility] Last Admin: 05/12/20 15:12 Dose: Not Given Documented by: Morphine Sulfate (Morphine 2 Mg/Ml Syringe) 1 - 2 mg IVPUSH Q1H PRN PRN Reason: Pain Last Admin: 05/13/20 05:10 Dose: 2 mg Documented by: Sodium Chloride (Sodium Chloride 0.9% 10 Ml Syringe) 10 ml FLUSH ASDIRECTED PRN PRN Reason: Keep Vein Open Last Admin: 05/12/20 22:52 Dose: 10 ml Documented by: Discontinued Medications Fentanyl (Fentanyl 25 Mcg/Hr Transdermal Patch) 25 mcg TRDERM Q72H [facility] Last Admin: 05/10/20 17:10 Dose: Not Given Documented by: Morphine Sulfate (Morphine Oral Concentrate 20 Mg/Ml 30 Ml Bottle) Confirm Administered Dose 600 mg .ROUTE .STK-MED ONE Stop: 05/10/20 15:29 Last Admin: 05/10/20 19:28 Dose: Not Given Documented by: Morphine Sulfate (Morphine 10 Mg/Ml Sdv) Confirm Administered Dose 30 mg .ROUTE .STK-MED ONE Stop: 05/10/20 15:31 Last Admin: 05/10/20 17:11 Dose: Not Given Documented by: Morphine Sulfate (Morphine 2 Mg/Ml Syringe) 2 mg IVPUSH Q4H PRN PRN Reason: Pain Last Admin: 05/11/20 08:05 Dose: 2 mg Documented by: Morphine Sulfate (Morphine 2 Mg/Ml Syringe) 2 mg IVPUSH Q2H PRN PRN Reason: Pain Last Admin: 05/12/20 09:39 Dose: 2 mg Documented by: - Exam Quality Assessment: Supplemental Oxygen General: Alert, Cooperative HEENT: Pupils Equal, Pupils Reactive (sluggish), EOMI Lungs: Decreased Breath Sounds, Rhonchi Cardiovascular: Regular Rate, Regular Rhythm GI/Abdominal Exam: Distended Extremities: Pedal Edema Peripheral Pulses: 2+: Dorsalis Pedis (L), Dorsalis Pedis (R) Skin: Cool, Other (edematous) Neurological: No New Focal Deficit - Patient Data Result Diagrams: 05/10/20 13:55 05/10/20 13:49 Sepsis Event Note - Evaluation Sepsis Screening Result: Sepsis Risk - Problem List & Annotations (1) End of life care SNOMED Code(s): 759936215, 779764768 Code(s): Z51.5 - ENCOUNTER FOR PALLIATIVE CARE Status: Acute Priority: High Current Visit: Yes (2) Pain SNOMED Code(s): 75870255 Code(s): R52 - PAIN, UNSPECIFIED Status: Acute Priority: High Current Visit: Yes (3) Pancreatic carcinoma metastatic to liver SNOMED Code(s): 548278116, 344933862 Code(s): C25.9 - MALIGNANT NEOPLASM OF PANCREAS, UNSPECIFIED; C78.7 - SECONDARY MALIG NEOPLASM OF LIVER AND INTRAHEPATIC BILE DUCT Status: Acute Priority: High Current Visit: Yes (4) Weakness generalized SNOMED Code(s): 39399680 Code(s): R53.1 - WEAKNESS Status: Acute Priority: High Current Visit: Yes (5) Leukocytosis, unspecified SNOMED Code(s): 386076532, 655587981 Code(s): D72.829 - ELEVATED WHITE BLOOD CELL COUNT, UNSPECIFIED Status: Acute Priority: High Current Visit: Yes Qualifiers: Leukocytosis type: unspecified Qualified Code(s): D72.829 - Elevated white blood cell count, unspecified (6) Hyperammonemia SNOMED Code(s): 6779689 Code(s): E72.20 - DISORDER OF UREA CYCLE METABOLISM, UNSPECIFIED Status: Acute Priority: High Current Visit: Yes (7) Anemia SNOMED Code(s): 777154557 Code(s): D64.9 - ANEMIA, UNSPECIFIED Status: Acute Priority: High Current Visit: Yes Qualifiers: Hemolytic anemia type: acquired, other (8) Elevated brain natriuretic peptide (BNP) level SNOMED Code(s): 844071820, 265003778 Code(s): R79.89 - OTHER SPECIFIED ABNORMAL FINDINGS OF BLOOD CHEMISTRY Status: Acute Priority: High Current Visit: Yes - Problem List Review Problem List Initiated/Reviewed/Updated: Yes - Plan Plan:: Patient to continue pain management and palliative care at this time. No changes to plan of care. Patient DNR/DNI.
[2020-05-13] MEDS ORDERED: Morphine 2 MG/ML SYRINGE ONE (08:30)
--- NOTE | 2020-05-13 11:04 | PCM.PN ---
- General Info Date of Service: 05/11/20 Admission Dx/Problem (Free Text): Patient's family in the room, he wakes for brief periods. states patient is moaning in pain. Morphine IV orders frequency updated. Functional Status: Reports: Pain Controlled - Patient Data Vitals - Most Recent: Last Vital Signs Temp 96.8 F L 05/13/20 08:00 Pulse 116 H 05/12/20 07:56 Resp 14 05/12/20 07:56 BP 103/70 05/12/20 07:56 Pulse Ox 96 05/12/20 07:56 Weight - Most Recent: 190 lb I&O - Last 24 Hours: Intake & Output 05/12/20 05/13/20 05/13/20 22:59 06:59 14:59 Intake Total 0 Output Total 75 Balance -75 Med Orders - Current: Current Medications Fentanyl (Fentanyl 50 Mcg/Hr Transdermal Patch) 50 mcg TRDERM Q72H [facility] Stop: 05/15/20 15:00 Last Admin: 05/12/20 15:28 Dose: 50 mcg Documented by: Lorazepam (Lorazepam 2 Mg/Ml Sdv) 1 mg IVPUSH Q6H PRN PRN Reason: Anxiety Last Admin: 05/13/20 05:53 Dose: 1 mg Documented by: Miscellaneous Information (Remove Patch) 1 ea TRDERM Q72H [facility] Last Admin: 05/12/20 15:12 Dose: Not Given Documented by: Morphine Sulfate (Morphine 2 Mg/Ml Syringe) 1 - 2 mg IVPUSH Q1H PRN PRN Reason: Pain Last Admin: 05/13/20 08:43 Dose: 2 mg Documented by: Sodium Chloride (Sodium Chloride 0.9% 10 Ml Syringe) 10 ml FLUSH ASDIRECTED PRN PRN Reason: Keep Vein Open Last Admin: 05/12/20 22:52 Dose: 10 ml Documented by: Discontinued Medications Fentanyl (Fentanyl 25 Mcg/Hr Transdermal Patch) 25 mcg TRDERM Q72H [facility] Last Admin: 05/10/20 17:10 Dose: Not Given Documented by: Morphine Sulfate (Morphine Oral Concentrate 20 Mg/Ml 30 Ml Bottle) Confirm Administered Dose 600 mg .ROUTE .STK-MED ONE Stop: 05/10/20 15:29 Last Admin: 05/10/20 19:28 Dose: Not Given Documented by: Morphine Sulfate (Morphine 10 Mg/Ml Sdv) Confirm Administered Dose 30 mg .ROUTE .STK-MED ONE Stop: 05/10/20 15:31 Last Admin: 05/10/20 17:11 Dose: Not Given Documented by: Morphine Sulfate (Morphine 2 Mg/Ml Syringe) 2 mg IVPUSH Q4H PRN PRN Reason: Pain Last Admin: 05/11/20 08:05 Dose: 2 mg Documented by: Morphine Sulfate (Morphine 2 Mg/Ml Syringe) 2 mg IVPUSH Q2H PRN PRN Reason: Pain Last Admin: 05/12/20 09:39 Dose: 2 mg Documented by: Morphine Sulfate (Morphine 2 Mg/Ml Syringe) Confirm Administered Dose 2 mg .ROUTE .STK-MED ONE Stop: 05/13/20 08:31 Last Admin: 05/13/20 08:43 Dose: Not Given Documented by: - Exam Quality Assessment: Supplemental Oxygen General: Other (sleeping, will briefly wake to voice) Lungs: Decreased Breath Sounds, Rhonchi Cardiovascular: Regular Rate, Regular Rhythm GI/Abdominal Exam: Distended Extremities: Pedal Edema Peripheral Pulses: 2+: Dorsalis Pedis (L), Dorsalis Pedis (R), 3+: Radial (L), Radial (R) Skin: Warm, Dry, Intact - Patient Data Result Diagrams: 05/10/20 13:55 05/10/20 13:49 Sepsis Event Note - Evaluation Sepsis Screening Result: Severe Sepsis Risk - Focused Exam Vital Signs: Vital Signs Temp 05/13/20 08:00 96.8 F L - Problem List Review Problem List Initiated/Reviewed/Updated: Yes - My Orders Last 24 Hours: My Active Orders 05/12/20 11:31 Morphine 1 - 2 mg IVPUSH Q1H PRN 05/12/20 12:00 Remove Patch 1 ea TRDERM Q72H fentaNYL [Duragesic] 50 mcg TRDERM Q72H - Plan Plan:: Patient to continue pain management and palliative care at this time. No changes to plan of care. Patient DNR/DNI.
--- NOTE | 2020-05-13 11:07 | PCM.PN ---
- General Info Date of Service: 05/12/20 Functional Status: Reports: Pain Controlled - Review of Systems General: Reports: Weakness - Patient Data Vitals - Most Recent: Last Vital Signs Temp 96.8 F L 05/13/20 08:00 Pulse 116 H 05/12/20 07:56 Resp 14 05/12/20 07:56 BP 103/70 05/12/20 07:56 Pulse Ox 96 05/12/20 07:56 Weight - Most Recent: 190 lb I&O - Last 24 Hours: Intake & Output 05/12/20 05/13/20 05/13/20 22:59 06:59 14:59 Intake Total 0 Output Total 75 Balance -75 Med Orders - Current: Current Medications Fentanyl (Fentanyl 50 Mcg/Hr Transdermal Patch) 50 mcg TRDERM Q72H [facility] Stop: 05/15/20 15:00 Last Admin: 05/12/20 15:28 Dose: 50 mcg Documented by: Lorazepam (Lorazepam 2 Mg/Ml Sdv) 1 mg IVPUSH Q6H PRN PRN Reason: Anxiety Last Admin: 05/13/20 05:53 Dose: 1 mg Documented by: Miscellaneous Information (Remove Patch) 1 ea TRDERM Q72H [facility] Last Admin: 05/12/20 15:12 Dose: Not Given Documented by: Morphine Sulfate (Morphine 2 Mg/Ml Syringe) 1 - 2 mg IVPUSH Q1H PRN PRN Reason: Pain Last Admin: 05/13/20 08:43 Dose: 2 mg Documented by: Sodium Chloride (Sodium Chloride 0.9% 10 Ml Syringe) 10 ml FLUSH ASDIRECTED PRN PRN Reason: Keep Vein Open Last Admin: 05/12/20 22:52 Dose: 10 ml Documented by: Discontinued Medications Fentanyl (Fentanyl 25 Mcg/Hr Transdermal Patch) 25 mcg TRDERM Q72H [facility] Last Admin: 05/10/20 17:10 Dose: Not Given Documented by: Morphine Sulfate (Morphine Oral Concentrate 20 Mg/Ml 30 Ml Bottle) Confirm Administered Dose 600 mg .ROUTE .STK-MED ONE Stop: 05/10/20 15:29 Last Admin: 05/10/20 19:28 Dose: Not Given Documented by: Morphine Sulfate (Morphine 10 Mg/Ml Sdv) Confirm Administered Dose 30 mg .ROUTE .STK-MED ONE Stop: 05/10/20 15:31 Last Admin: 05/10/20 17:11 Dose: Not Given Documented by: Morphine Sulfate (Morphine 2 Mg/Ml Syringe) 2 mg IVPUSH Q4H PRN PRN Reason: Pain Last Admin: 05/11/20 08:05 Dose: 2 mg Documented by: Morphine Sulfate (Morphine 2 Mg/Ml Syringe) 2 mg IVPUSH Q2H PRN PRN Reason: Pain Last Admin: 05/12/20 09:39 Dose: 2 mg Documented by: Morphine Sulfate (Morphine 2 Mg/Ml Syringe) Confirm Administered Dose 2 mg .ROUTE .STK-MED ONE Stop: 05/13/20 08:31 Last Admin: 05/13/20 08:43 Dose: Not Given Documented by: - Patient Data Result Diagrams: 05/10/20 13:55 05/10/20 13:49 Sepsis Event Note - Evaluation Sepsis Screening Result: Severe Sepsis Risk - Focused Exam Vital Signs: Vital Signs Temp 05/13/20 08:00 96.8 F L - Problem List Review Problem List Initiated/Reviewed/Updated: Yes - My Orders Last 24 Hours: My Active Orders 05/12/20 11:31 Morphine 1 - 2 mg IVPUSH Q1H PRN 05/12/20 12:00 Remove Patch 1 ea TRDERM Q72H fentaNYL [Duragesic] 50 mcg TRDERM Q72H - Assessment Assessment:: Patient shows no changes, rested better with ativan. Will continue cares as ordered for comfort care. - Plan Plan:: Patient to continue pain management and palliative care at this time. No changes to plan of care. Patient DNR/DNI.
--- NOTE | 2020-05-13 11:14 | PCM.DCSUM1 ---
Discharge Summary - Hospital Course Free Text/Narrative:: Today status for the patient will change from inpatient to a swing bed. Patient unable to self administer pain medications, a skilled RN is needed for pain med management and assessments. - Discharge Data Discharge Date: 05/13/20 Discharge Disposition: DC/Tfer W/I Hosp To Swing 61 Condition: Poor - Referral to Home Health Primary Care Physician: PCP None - Discharge Plan *PRESCRIPTION DRUG MONITORING PROGRAM REVIEWED*: Not Applicable *COPY OF PRESCRIPTION DRUG MONITORING REPORT IN PATIENT ALFREDO: Not Applicable Home Medications: Home Meds Aspirin [Adult Low Dose Aspirin EC] 81 mg PO BID 01/25/13 [History] Furosemide [Lasix] 20 mg PO DAILY 01/25/13 [History] Losartan Potassium [Cozaar] 25 mg PO DAILY 01/25/13 [History] Metoprolol Tartrate 25 mg PO BID 01/25/13 [History] Albuterol [Ventolin HFA] 2 puff IH Q4HR PRN 11/16/18 [History] Cetirizine HCl [All Day Allergy] 10 mg PO DAILY 11/16/18 [History] Cholecalciferol (Vitamin D3) [Vitamin D3] 25 mcg PO DAILY 11/16/18 [History] Colchicine [Colcrys] 0.6 mg PO ASDIRECTED PRN 11/16/18 [History] Indomethacin 50 mg PO TID PRN 11/16/18 [History] Mometasone Furoate [Asmanex] 2 puff IH DAILY 11/16/18 [History] Nitroglycerin [Nitrostat] 0.4 mg SL ASDIRECTED PRN 11/16/18 [History] Prochlorperazine [Compazine] 10 mg PO Q6H PRN 11/16/18 [History] Loperamide [Imodium AD] 2 mg PO ASDIRECTED PRN 09/10/19 [History] Hydrocodone/Acetaminophen [Hydrocodon-Acetaminophen 5-325] 1 - 2 each PO Q4H 10/13/19 [History] fentaNYL [Duragesic] 12 mcg TD Q72H 10/13/19 [History] polyethylene glycoL 3350 [MiraLAX] 17 gm PO BID 10/13/19 [History] Forms: ED Department Discharge Referrals: PCP,None [Primary Care Provider] - - Discharge Summary/Plan Comment DC Time >30 min.: No Discharge Summary/Plan Comment: Patient will be swing bed, comfort cares will continue with morphine and ativan concentrate, fentanyl patch order will remain active as well. Discussed ongoing comfort cares with family. DNR/DNI - Patient Data Vitals - Most Recent: Last Vital Signs Temp 96.8 F L 05/13/20 08:00 Pulse 116 H 05/12/20 07:56 Resp 14 05/12/20 07:56 BP 103/70 05/12/20 07:56 Pulse Ox 96 05/12/20 07:56 Weight - Most Recent: 190 lb I&O - Last 24 hours: Intake & Output 05/12/20 05/13/20 05/13/20 22:59 06:59 14:59 Intake Total 0 Output Total 75 Balance -75 Med Orders - Current: Current Medications Fentanyl (Fentanyl 50 Mcg/Hr Transdermal Patch) 50 mcg TRDERM Q72H [facility] Stop: 05/15/20 15:00 Last Admin: 05/12/20 15:28 Dose: 50 mcg Documented by: Lorazepam (Lorazepam 2 Mg/Ml Sdv) 1 mg IVPUSH Q6H PRN PRN Reason: Anxiety Last Admin: 05/13/20 05:53 Dose: 1 mg Documented by: Miscellaneous Information (Remove Patch) 1 ea TRDERM Q72H [facility] Last Admin: 05/12/20 15:12 Dose: Not Given Documented by: Morphine Sulfate (Morphine 2 Mg/Ml Syringe) 1 - 2 mg IVPUSH Q1H PRN PRN Reason: Pain Last Admin: 05/13/20 08:43 Dose: 2 mg Documented by: Sodium Chloride (Sodium Chloride 0.9% 10 Ml Syringe) 10 ml FLUSH ASDIRECTED PRN PRN Reason: Keep Vein Open Last Admin: 05/12/20 22:52 Dose: 10 ml Documented by: Discontinued Medications Fentanyl (Fentanyl 25 Mcg/Hr Transdermal Patch) 25 mcg TRDERM Q72H [facility] Last Admin: 05/10/20 17:10 Dose: Not Given Documented by: Morphine Sulfate (Morphine Oral Concentrate 20 Mg/Ml 30 Ml Bottle) Confirm Administered Dose 600 mg .ROUTE .STK-MED ONE Stop: 05/10/20 15:29 Last Admin: 05/10/20 19:28 Dose: Not Given Documented by: Morphine Sulfate (Morphine 10 Mg/Ml Sdv) Confirm Administered Dose 30 mg .ROUTE .STK-MED ONE Stop: 05/10/20 15:31 Last Admin: 05/10/20 17:11 Dose: Not Given Documented by: Morphine Sulfate (Morphine 2 Mg/Ml Syringe) 2 mg IVPUSH Q4H PRN PRN Reason: Pain Last Admin: 05/11/20 08:05 Dose: 2 mg Documented by: Morphine Sulfate (Morphine 2 Mg/Ml Syringe) 2 mg IVPUSH Q2H PRN PRN Reason: Pain Last Admin: 05/12/20 09:39 Dose: 2 mg Documented by: Morphine Sulfate (Morphine 2 Mg/Ml Syringe) Confirm Administered Dose 2 mg .ROU TE .STK-MED ONE Stop: 05/13/20 08:31 Last Admin: 05/13/20 08:43 Dose: Not Given Documented by:
== END 2020-05-13 10:00 | disposition swing bed (61) | DRG 948 ==
LOC: LB.ED 13:28 → LB.MS 14:59 → UNDOADMIN 16:41
PROVIDERS: ADMIT Nurse Practitioner; ATTEND Nurse Practitioner
DX: R53.1 Weakness (principal); C78.7 Secondary malignant neoplasm of liver and intrahepatic bile duct; C78.02 Secondary malignant neoplasm of left lung; C78.01 Secondary malignant neoplasm of right lung; R17 Unspecified jaundice; C25.9 Malignant neoplasm of pancreas, unspecified; E72.20 Disorder of urea cycle metabolism, unspecified; Z20.822 Contact with and (suspected) exposure to COVID-19; H91.90 Unspecified hearing loss, unspecified ear; Z66 Do not resuscitate; Z51.5 Encounter for palliative care; H54.7 Unspecified visual loss; I25.10 Atherosclerotic heart disease of native coronary artery without angina pectoris; E78.00 Pure hypercholesterolemia, unspecified; I10 Essential (primary) hypertension; J45.909 Unspecified asthma, uncomplicated; K21.9 Gastro-esophageal reflux disease without esophagitis; M19.90 Unspecified osteoarthritis, unspecified site; G89.29 Other chronic pain; M54.9 Dorsalgia, unspecified; Z95.5 Presence of coronary angioplasty implant and graft; Z98.49 Cataract extraction status, unspecified eye; Z95.1 Presence of aortocoronary bypass graft; Z79.899 Other long term (current) drug therapy; Z79.82 Long term (current) use of aspirin; R60.0 Localized edema; R52 Pain, unspecified; D72.829 Elevated white blood cell count, unspecified; D64.9 Anemia, unspecified; R79.89 Other specified abnormal findings of blood chemistry
CPT/HCPCS: 36415; 51702; 71045; 80053; 81003; 82140; 82803; 83605; 83690; 83880; 84484; 85025; 93005; 99285-25; A0425; A0429; A9270-GY; J2060; J2270; U0002

== ENCOUNTER 2020-05-13 09:44 | Inpatient (IN) | payer MEDICARE, BC ==
[~2020-05-13 09:44] MED LIST changes: -fentaNYL 25 MCG/HR Transdermal Patch TRDERM SCH; +fentaNYL 50 MCG/HR Transdermal Patch TRDERM SCH
[2020-05-13] MEDS ORDERED: LORazepam 2 MG/ML SDV IM PRN (10:20)
[2020-05-13] MEDS: Morphine Oral Concentrate 20 MG/ML 30 ML Bottle PO SCH ×7 (11:53→22:09)
[2020-05-13] MEDS: Morphine 2 MG/ML SYRINGE IM PRN (13:00)
[2020-05-13] MEDS ORDERED: Tuberculin, PPD 5 Units/0.1 ML 1 ML MDV IDERM ONE (16:19)
--- NOTE | 2020-05-13 16:55 | PCM.HP.2 ---
H&P History of Present Illness - General Date of Service: 05/13/20 Admit Problem/Dx: Admission Diagnosis/Problem Admission Diagnosis/Problem Carcinoma of pancreas Source of Information: Patient, Family, Old Records, RN Notes Reviewed, Other History Limitations: Reports: Altered Mental Status - History of Present Illness Initial Comments - Free Text/Narative: This is a 70y M admitted to [facility] bed for pain management and IV management secondary to end stage metastatic pancreatic cancer. is present and both are in agreement with the current plan of care. Duration of Symptoms: Reports: Constant, Waxing/Waning Location: Reports: Generalized Improves with: Reports: None Worsens with: Reports: Movement Associated Symptoms: Reports: Confusion, Nausea/Vomiting, Weakness - Related Data Allergies/Adverse Reactions: Allergies Allergy/AdvReac Type Severity Reaction Status Date / Time No Known Allergies Allergy Verified 05/10/20 15:58 Home Medications: Home Meds Aspirin [Adult Low Dose Aspirin EC] 81 mg PO BID 01/25/13 [History] Furosemide [Lasix] 20 mg PO DAILY 01/25/13 [History] Losartan Potassium [Cozaar] 25 mg PO DAILY 01/25/13 [History] Metoprolol Tartrate 25 mg PO BID 01/25/13 [History] Albuterol [Ventolin HFA] 2 puff IH Q4HR PRN 11/16/18 [History] Cetirizine HCl [All Day Allergy] 10 mg PO DAILY 11/16/18 [History] Cholecalciferol (Vitamin D3) [Vitamin D3] 25 mcg PO DAILY 11/16/18 [History] Colchicine [Colcrys] 0.6 mg PO ASDIRECTED PRN 11/16/18 [History] Indomethacin 50 mg PO TID PRN 11/16/18 [History] Mometasone Furoate [Asmanex] 2 puff IH DAILY 11/16/18 [History] Nitroglycerin [Nitrostat] 0.4 mg SL ASDIRECTED PRN 11/16/18 [History] Prochlorperazine [Compazine] 10 mg PO Q6H PRN 11/16/18 [History] Loperamide [Imodium AD] 2 mg PO ASDIRECTED PRN 09/10/19 [History] Hydrocodone/Acetaminophen [Hydrocodon-Acetaminophen 5-325] 1 - 2 each PO Q4H 10/13/19 [History] fentaNYL [Duragesic] 12 mcg TD Q72H 10/13/19 [History] polyethylene glycoL 3350 [MiraLAX] 17 gm PO BID 10/13/19 [History] Past Medical History HEENT History: Reports: Hard of Hearing, Impaired Vision Cardiovascular History: Reports: CAD, High Cholesterol, Hypertension, Stents Respiratory History: Reports: Asthma Gastrointestinal History: Reports: Gastritis, GERD Other Gastrointestinal History: pancreatic cancer Musculoskeletal History: Reports: Arthritis, Back Pain, Chronic, Osteoarthritis Hematologic History: Reports: None Other Immunologic History: currently on chemo Oncologic (Cancer) History: Reports: Pancreatic Other Oncologic History: end of life pancreatic metastatic cancer - Past Surgical History HEENT Surgical History: Reports: Cataract Surgery Cardiovascular Surgical History: Reports: Coronary Artery Bypass Social & Family History - Family History Family Medical History: No Pertinent Family History - Caffeine Use Caffeine Use: Reports: None Caffeine Use Comment: drinks coffe occassionally H&P Review of Systems - Review of Systems: Review Of Systems: Comprehensive ROS is negative, except as noted in HPI. Exam - Exam Exam: See Below - Vital Signs Vital Signs: Last Vital Signs Temp 36.2 C 05/13/20 14:57 Pulse 109 H 05/13/20 14:57 Resp 14 05/13/20 14:57 BP Pulse Ox 96 05/13/20 14:57 Weight: 86.183 kg - Exam General: Lethargic Neck: Supple, Trachea Midline Lungs: Decreased Breath Sounds, Rhonchi Cardiovascular: Regular Rate, Regular Rhythm GI/Abdominal Exam: Distended, Abnormal Bowel Sounds Extremities: Pedal Edema Skin: Other (Jaundice) Neuro Extensive - Mental Status: Disorientation to Time Sepsis Event Note - Evaluation Sepsis Screening Result: No Definite Risk - Focused Exam Vital Signs: Vital Signs Temp Pulse Resp Pulse Ox 05/13/20 14:57 36.2 C 109 H 14 96 05/13/20 10:59 36.0 C L - Problem List (1) Palliative care patient SNOMED Code(s): 960977491, 001750614 ICD Code: Z51.5 - ENCOUNTER FOR PALLIATIVE CARE Status: Acute Current Visit: Yes (2) Pancreatic carcinoma metastatic to liver SNOMED Code(s): 254736751, 324158252 ICD Code: C25.9 - MALIGNANT NEOPLASM OF PANCREAS, UNSPECIFIED; C78.7 - SECONDARY MALIG NEOPLASM OF LIVER AND INTRAHEPATIC BILE DUCT Status: Acute Priority: High Current Visit: No (3) Pain management SNOMED Code(s): 294718199 ICD Code: R52 - PAIN, UNSPECIFIED Status: Acute Current Visit: Yes Problem List Initiated/Reviewed/Updated: Yes Orders Last 24hrs: Active Orders 24 hr Category Date Time Status Admission Status [Patient Status] [ADT] Routine ADT 05/13/20 10:44 Active Bedrest [RC] ASDIRECTED Care 05/13/20 11:05 Active Urinary Catheter Assessment [RC] DAILY Care 05/13/20 11:06 Active No Tray Needed Diet [DIET] Diet 05/13/20 Dinner Ordered LORazepam [Ativan] Med 05/13/20 10:20 Active 1 mg IM Q6H PRN Morphine Med 05/13/20 10:11 Active 2 mg IM Q4H PRN Morphine [Morphine 20 MG/ML Soln] Med 05/13/20 10:15 Active 2 mg PO Q2H Code Status [Resuscitation Status] Routine Resus Stat 05/13/20 11:03 Ordered Medication Orders Fentanyl (Fentanyl 50 Mcg/Hr Transdermal Patch) 50 mcg TRDERM Q72H [facility] Last Admin: 05/13/20 11:22 Dose: Not Given Documented by: BARB Lorazepam (Lorazepam 2 Mg/Ml Sdv) 1 mg IM Q6H PRN PRN Reason: ANXIETY Last Admin: 05/13/20 16:15 Dose: 1 mg Documented by: BARB Miscellaneous Information (Remove Patch) 1 ea TRDERM Q72H [facility] Last Admin: 05/13/20 11:55 Dose: Not Given Documented by: BARB Morphine Sulfate (Morphine Oral Concentrate 20 Mg/Ml 30 Ml Bottle) 2 mg PO Q2H [facility] Last Admin: 05/13/20 16:01 Dose: 2 mg Documented by: Admin: 05/13/20 14:05 Dose: 2 mg Documented by: Admin: 05/13/20 11:54 Dose: 2 mg Documented by: Admin: 05/13/20 11:53 Dose: Not Given Documented by: BARB Morphine Sulfate (Morphine 2 Mg/Ml Syringe) 2 mg IM Q4H PRN PRN Reason: pain Last Admin: 05/13/20 13:00 Dose: 2 mg Documented by: BARB Assessment/Plan Comment:: Patient on pain management and end of life care. Palliative care patient. He is DNR/DNI. We will continue close comfort cares for this patient.
[2020-05-14] MEDS: Morphine Oral Concentrate 20 MG/ML 30 ML Bottle PO SCH ×5 (00:05→08:21)
[2020-05-14] MEDS: Morphine 2 MG/ML SYRINGE IM PRN (03:14)
--- NOTE | 2020-05-14 09:28 | PCM.DCSUM1 ---
Discharge Summary - Discharge Data Discharge Date: 05/14/20 Discharge Disposition: 20 Condition: - Referral to Home Health Primary Care Physician: PCP None - Discharge Diagnosis/Problem(s) (1) Palliative care patient SNOMED Code(s): 161393309, [id number] ICD Code: Z51.5 - ENCOUNTER FOR PALLIATIVE CARE Status: Acute Priority: High Current Visit: Yes (2) Pancreatic carcinoma metastatic to liver SNOMED Code(s): 011008564, 584548569 ICD Code: C25.9 - MALIGNANT NEOPLASM OF PANCREAS, UNSPECIFIED; C78.7 - SECONDARY MALIG NEOPLASM OF LIVER AND INTRAHEPATIC BILE DUCT Status: Acute Priority: High Current Visit: Yes (3) Pain management SNOMED Code(s): 754231822 ICD Code: R52 - PAIN, UNSPECIFIED Status: Acute Priority: High Current Visit: Yes - Discharge Plan Home Medications: Home Meds Aspirin [Adult Low Dose Aspirin EC] 81 mg PO BID 01/25/13 [History] Furosemide [Lasix] 20 mg PO DAILY 01/25/13 [History] Losartan Potassium [Cozaar] 25 mg PO DAILY 01/25/13 [History] Metoprolol Tartrate 25 mg PO BID 01/25/13 [History] Albuterol [Ventolin HFA] 2 puff IH Q4HR PRN 11/16/18 [History] Cetirizine HCl [All Day Allergy] 10 mg PO DAILY 11/16/18 [History] Cholecalciferol (Vitamin D3) [Vitamin D3] 25 mcg PO DAILY 11/16/18 [History] Colchicine [Colcrys] 0.6 mg PO ASDIRECTED PRN 11/16/18 [History] Indomethacin 50 mg PO TID PRN 11/16/18 [History] Mometasone Furoate [Asmanex] 2 puff IH DAILY 11/16/18 [History] Nitroglycerin [Nitrostat] 0.4 mg SL ASDIRECTED PRN 11/16/18 [History] Prochlorperazine [Compazine] 10 mg PO Q6H PRN 11/16/18 [History] Loperamide [Imodium AD] 2 mg PO ASDIRECTED PRN 09/10/19 [History] Hydrocodone/Acetaminophen [Hydrocodon-Acetaminophen 5-325] 1 - 2 each PO Q4H 10/13/19 [History] fentaNYL [Duragesic] 12 mcg TD Q72H 10/13/19 [History] polyethylene glycoL 3350 [MiraLAX] 17 gm PO BID 10/13/19 [History] - Discharge Summary/Plan Comment DC Time >30 min.: No Discharge Summary/Plan Comment: Patient passed with family present at 0845am today. - Patient Data Vitals - Most Recent: Last Vital Signs Temp 36.2 C 05/13/20 14:57 Pulse 109 H 05/13/20 14:57 Resp 14 05/13/20 14:57 BP Pulse Ox 96 05/13/20 14:57 Weight - Most Recent: 86.183 kg I&O - Last 24 hours: Intake & Output 05/13/20 05/14/20 05/14/20 22:59 06:59 14:59 Intake Total 0 Output Total 0 Balance 0 Med Orders - Current: Current Medications Fentanyl (Fentanyl 50 Mcg/Hr Transdermal Patch) 50 mcg TRDERM Q72H [facility] Last Admin: 05/13/20 11:22 Dose: Not Given Documented by: Lorazepam (Lorazepam 2 Mg/Ml Sdv) 1 mg IM Q6H PRN PRN Reason: ANXIETY Last Admin: 05/13/20 16:15 Dose: 1 mg Documented by: Miscellaneous Information (Remove Patch) 1 ea TRDERM Q72H [facility] Last Admin: 05/13/20 11:55 Dose: Not Given Documented by: Morphine Sulfate (Morphine Oral Concentrate 20 Mg/Ml 30 Ml Bottle) 2 mg PO Q2H [facility] Last Admin: 05/14/20 08:21 Dose: 2 mg Documented by: Morphine Sulfate (Morphine 2 Mg/Ml Syringe) 2 mg IM Q4H PRN PRN Reason: pain Last Admin: 05/14/20 03:14 Dose: 2 mg Documented by: Discontinued Medications Tuberculin PPD (Tuberculin, Ppd 5 Units/0.1 Ml 1 Ml Mdv) 5 unit IDERM ONETIME ONE Stop: 05/13/20 16:20 Last Admin: 05/13/20 16:15 Dose: 5 unit Documented by:
== END 2020-05-14 08:45 | disposition expired | DRG 948 ==
LOC: LB.MS 10:44
PROVIDERS: ADMIT Family Medicine; ATTEND Family Medicine
DX: G89.3 Neoplasm related pain (acute) (chronic) (principal); C78.7 Secondary malignant neoplasm of liver and intrahepatic bile duct; C25.9 Malignant neoplasm of pancreas, unspecified; Z51.5 Encounter for palliative care; H91.90 Unspecified hearing loss, unspecified ear; H54.7 Unspecified visual loss; I25.10 Atherosclerotic heart disease of native coronary artery without angina pectoris; Z66 Do not resuscitate; E78.00 Pure hypercholesterolemia, unspecified; I10 Essential (primary) hypertension; J45.909 Unspecified asthma, uncomplicated; K21.9 Gastro-esophageal reflux disease without esophagitis; M19.90 Unspecified osteoarthritis, unspecified site; M54.9 Dorsalgia, unspecified; G89.29 Other chronic pain; Z79.82 Long term (current) use of aspirin; Z79.899 Other long term (current) drug therapy; Z95.5 Presence of coronary angioplasty implant and graft; Z98.49 Cataract extraction status, unspecified eye; Z92.21 Personal history of antineoplastic chemotherapy; Z95.1 Presence of aortocoronary bypass graft
CPT/HCPCS: 86580; A9270-GY; J2060; J2270